=== PATIENT | female | born 1975 | race Caucasian/White ===

== ENCOUNTER 2019-09-05 10:09 | Inpatient (IN) | payer BC ==
[~2019-09-05] VITALS: Ht 165.1 cm; Wt 75.9 kg
[2019-09-05] VITALS (15 sets, daily range): BP systolic 118–156; BP diastolic 66–93
[2019-09-05] MEDS ORDERED: IV NORMAL SALINE 1000ML BAG 1,000 ML IV SCH ×3 (10:16→15:00)
[2019-09-05 10:29] LABS: BASO # 0.1 x10^3/uL (0.0-0.2); BASO % 1 % (0-3); EOS # 0.2 x10^3/uL (0.0-0.7); EOS % 1 % (0-3); HEMATOCRIT 37.2 % (36.0-47.0); HEMOGLOBIN 12.4 g/dL (12.0-15.5); LYMPH # 3.8 x10^3/uL (1.0-4.8); LYMPH % 31 % (24-48); MEAN CORPUSCULAR HEMOGLOBIN 28 pg (25-35); MEAN CORPUSCULAR HGB CONC 33 g/dL (31-37); MEAN CORPUSCULAR VOLUME 85 fL (79-100); MONO # 1.1 x10^3/uL (0.0-1.1); MONO % 9 % (0-9); NEUT # 7.3 x10^3/uL (1.8-7.7); NEUT % 58 % (31-73); PLATELET COUNT 346 x10^3/uL (140-400); RED CELL DISTRIBUTION WIDTH 15.6 % (11.5-14.5); WHITE BLOOD COUNT 12.5 x10^3/uL (4.0-11.0)
[2019-09-05] MEDS ORDERED: CHARCOAL/SORBITOL 50 GM/240 ML SUSPENSION. PO ONE (10:30)
[2019-09-05 10:36] LABS: PROTHROMBIN TIME PATIENT 11.6 SEC (11.7-14.0)
[2019-09-05 10:37] LABS: CALCIUM 9.4 mg/dL (8.5-10.1); CREATININE 0.7 mg/dL (0.6-1.0); GFR 92.2; POTASSIUM 4.1 mmol/L (3.5-5.1)
[2019-09-05 10:41] LABS: BILIRUBIN,URINE NEGATIVE (NEG); CLARITY,URINE CLEAR; COLOR,URINE YELLOW; NITRITE,URINE NEGATIVE (NEG); PROTEIN,URINE NEGATIVE (NEG-TRACE); UROBILINOGEN,URINE 0.2 mg/dL (0.2 mg/dL)
[2019-09-05 10:43] LABS: ALBUMIN 3.8 g/dL (3.4-5.0); DIRECT BILIRUBIN 0.1 mg/dL (0.0-0.2); TOTAL BILIRUBIN 0.3 mg/dL (0.2-1.0); TOTAL PROTEIN 7.4 g/dL (6.4-8.2)
[2019-09-05 10:43] LABS: BARBITURATES NEG (NEG); BENZODIAZEPINES NEG (NEG); CANNABINOIDS POS (NEG); COCAINE NEG (NEG); METHADONE NEG (NEG); OPIATES NEG (NEG); PHENCYCLIDINE NEG (NEG)
[2019-09-05 10:46] LABS: AMPHETAMINE/METHAMPHETAMINE POS (NEG)
[2019-09-05 10:47] LABS: ACETAMIN 226.8 mcg/ml (10-30); ETHANOL < 10 mg/dL (0-10); SALIC 4.3 mg/dL (2.8-20.0)
[2019-09-05 10:49] LABS: AMORPHOUS SEDIMENT,UR PRESENT /HPF; BACTERIA,URINE 0 /HPF (0-FEW); RBC,URINE 0 /HPF (0-2); SQUAMOUS EPITHELIAL CELL,UR FEW /LPF; WBC,URINE 0 /HPF (0-4)
--- NOTE | 2019-09-05 10:55 | PHYS DOC ---
Adult General Chief Complaint Chief Complaint: OVERDOSE HPI HPI Patient is a 43-year-old female who presents with report of overdose of Tylenol PM. Family had reportedly called EMS stating that patient had taken 80 tablets of Tylenol PM at 9:10 this morning. EMS reports that upon their arrival patient was very lethargic and responsive to painful stimuli. They reported GCS of 9. Patient reportedly has had no vomiting. No other history is available at this time as patient is unable to answer questions.[] Review of Systems Review of Systems Constitutional: Denies fever or chills [] Respiratory: No reported shortness of breath [] Cardiovascular: No additional information not addressed in HPI [] GI: No reported vomiting or diarrhea [] Neurologic: Positive mental status changes [] Unable to fully assess review of systems due to patient mental status. Current Medications Current Medications Current Medications Medications (Trade) Dose Ordered Sig/Mae Start Time Stop Time Status Last Admin Dose Admin Acetylcysteine 12.3 gm/Dextrose 261.5 ml @ 200 mls/hr 1X ONCE 09/05/19 11:00 09/05/19 12:18 UNV Charcoal/Sorbitol (Insta-Kayley Sorbitol) 50 gm 1X ONCE 09/05/19 10:30 09/05/19 11:12 DC Lorazepam (Ativan Inj) 2 mg 1X ONCE 09/05/19 10:30 09/05/19 11:12 DC Sodium Chloride 1,000 ml @ 125 mls/hr Q8H 09/05/19 11:39 09/06/19 11:38 UNV Allergies Allergies Allergies Coded Allergies Type Severity Reaction Last Updated Verified Unable to Assess 09/05/19 No Physical Exam Physical Exam Constitutional: Well developed, well nourished, no acute distress, non-toxic appearance. [] HENT: Normocephalic, atraumatic, bilateral external ears normal, oropharynx dry, no oral exudates, nose normal. [] Eyes: PERRLA, EOMI, conjunctiva normal, no discharge. [] Neck: Normal range of motion, no tenderness, supple, no stridor. [] Cardiovascular: Regular rate and rhythm[] Lungs & Thorax: Bilateral breath sounds clear to auscultation [] Abdomen: Bowel sounds normal, soft, no tenderness. [] Skin: Warm, dry, no erythema, no rash. [] Extremities: No tenderness, no cyanosis, no clubbing, ROM intact, no edema. [] Neurologic: Very lethargic but arousable to painful stimuli. Patient nonverbal. Patient unable to follow commands. [] Current Patient Data Vital Signs Vital Signs Date Time Temp Pulse Resp B/P (MAP) Pulse Ox O2 Delivery O2 Flow Rate FiO2 09/05/19 11:31 68 12 119/65 (83) 99 Room Air 09/05/19 10:09 94.4 94.4 Lab Values Laboratory Tests Test 09/05/19 10:14 09/05/19 10:18 09/05/19 10:20 09/05/19 10:21 White Blood Count 12.5 x10^3/uL (4.0-11.0) H Red Blood Count 4.40 x10^6/uL (3.50-5.40) Hemoglobin 12.4 g/dL (12.0-15.5) Hematocrit 37.2 % (36.0-47.0) Mean Corpuscular Volume 85 fL (79-100) Mean Corpuscular Hemoglobin 28 pg (25-35) Mean Corpuscular Hemoglobin Concent 33 g/dL (31-37) Red Cell Distribution Width 15.6 % (11.5-14.5) H Platelet Count 346 x10^3/uL (140-400) Neutrophils (%) (Auto) 58 % (31-73) Lymphocytes (%) (Auto) 31 % (24-48) Monocytes (%) (Auto) 9 % (0-9) Eosinophils (%) (Auto) 1 % (0-3) Basophils (%) (Auto) 1 % (0-3) Neutrophils # (Auto) 7.3 x10^3/uL (1.8-7.7) Lymphocytes # (Auto) 3.8 x10^3/uL (1.0-4.8) Monocytes # (Auto) 1.1 x10^3/uL (0.0-1.1) Eosinophils # (Auto) 0.2 x10^3/uL (0.0-0.7) Basophils # (Auto) 0.1 x10^3/uL (0.0-0.2) Sodium Level 139 mmol/L (136-145) Potassium Level 4.1 mmol/L (3.5-5.1) Chloride Level 104 mmol/L (98-107) Carbon Dioxide Level 24 mmol/L (21-32) Anion Gap 11 (6-14) Blood Urea Nitrogen 9 mg/dL (7-20) Creatinine 0.7 mg/dL (0.6-1.0) Estimated GFR (Cockcroft-Gault) 92.2 Glucose Level 100 mg/dL (70-99) H Lactic Acid Level 1.2 mmol/L (0.4-2.0) Calcium Level 9.4 mg/dL (8.5-10.1) Magnesium Level 2.0 mg/dL (1.8-2.4) Total Bilirubin 0.3 mg/dL (0.2-1.0) Direct Bilirubin 0.1 mg/dL (0.0-0.2) Aspartate Amino Transferase (AST) 23 U/L (15-37) Alanine Aminotransferase (ALT) 20 U/L (14-59) Alkaline Phosphatase 156 U/L (46-116) H Total Protein 7.4 g/dL (6.4-8.2) Albumin 3.8 g/dL (3.4-5.0) Salicylates Level 4.3 mg/dL (2.8-20.0) Salicylate Last Dose Date Unknown Salicylate Last Dose Time Unknown Acetaminophen Level 226.8 mcg/ml (10-30) H Acetaminophen Last Dose Date Unknown Acetaminophen Last Dose Time Unknown Ethyl Alcohol Level < 10 mg/dL (0-10) Urine Collection Type Unknown Urine Color Yellow Urine Clarity Clear Urine pH 7.0 Urine Specific [place] 1.010 Urine Protein Negative mg/dL (NEG-TRACE) Urine Glucose (UA) Negative mg/dL (NEG) Urine Ketones (Stick) Negative mg/dL (NEG) Urine Blood Negative (NEG) Urine Nitrite Negative (NEG) Urine Bilirubin Negative (NEG) Urine Urobilinogen Dipstick 0.2 mg/dL (0.2 mg/dL) Urine Leukocyte Esterase Negative (NEG) Urine RBC 0 /HPF (0-2) Urine WBC 0 /HPF (0-4) Urine Squamous Epithelial Cells Few /LPF Urine Amorphous Sediment Present /HPF Urine Bacteria 0 /HPF (0-FEW) Urine Opiates Screen Neg (NEG) Urine Methadone Screen Neg (NEG) Urine Barbiturates Neg (NEG) Urine Phencyclidine Screen Neg (NEG) Urine Amphetamine/Methamphetamine Pos (NEG) Urine Benzodiazepines Screen Neg (NEG) Urine Cocaine Screen Neg (NEG) Urine Cannabinoids Screen Pos (NEG) Urine Ethyl Alcohol Neg (NEG) Ammonia < 10 mcmol/L (11-34) L POC Urine HCG, Qualitative Hcg negative (Negative) Laboratory Tests 09/05/19 10:14 Laboratory Tests 09/05/19 10:14 EKG EKG [] Interpretation Time: EKG demonstrates normal sinus rhythm with rate of 86. Radiology/Procedures Radiology/Procedures [] Course & Med Decision Making Course & Med Decision Making Pertinent Labs and Imaging studies reviewed. (See chart for details) [] Dragon Disclaimer Dragon Disclaimer This electronic medical record was generated, in whole or in part, using a voice recognition dictation system. Departure Departure Impression: Primary Impression: Acetaminophen overdose Additional Impressions: Diphenhydramine overdose Suicide attempt by acetaminophen overdose Disposition: ADMITTED INPATIENT Admitting Physician: BJ (Dr. Sampson) Condition: GUARDED Problem Qualifiers Primary Impression: Acetaminophen overdose Encounter type: initial encounter Injury intent: intentional self-harm Qualified Codes: T39.1X2A - Poisoning by 4-aminophenol derivatives, intentional self-harm, initial encounter Additional Impressions: Diphenhydramine overdose Encounter type: initial encounter Injury intent: intentional self-harm Qualified Codes: T45.0X2A - Poisoning by antiallergic and antiemetic drugs, intentional self-harm, initial encounter Suicide attempt by acetaminophen overdose Encounter type: initial encounter Qualified Codes: T39.1X2A - Poisoning by 4-aminophenol derivatives, intentional self-harm, initial encounter STACY MARQUES Jr., DO Sep 05, 2019 10:55
[2019-09-05] MEDS ORDERED: DEXTROSE 5% IV ONE (11:00)
[2019-09-05] MEDS ORDERED: ACETYLCYSTEINE IV ONE (11:00)
--- NOTE | 2019-09-05 11:22 | PDOC1 ---
History and Physical Date of Admission Date of Admission DATE: 09/05/19 TIME: 11:21 Identification/Chief Complaint Chief Complaint seen in er with overdose of Tylenol PM. Family had reportedly called EMS stating that patient had taken 80 tablets of Tylenol PM at 9:10 this morning. EMS reports that upon their arrival patient was very lethargic and responsive to painful stimuli. They reported GCS of 9. Patient reportedly has had no vomiting., has been depressed recently, lost 2 grandmothers in last year, under stress in marriage Past Medical History Past Medical History depression Psych: Depression Family History Family History: Hypertension Social History Smoke: <1 pack per day ALCOHOL: occassional Drugs: None Current Medications Current Medications Current Medications Sodium Chloride 1,000 ml @ 1,000 mls/hr Q1H IV Last administered on 09/05/19at 10:16; Start 09/05/19 at 10:16; Stop 09/05/19 at 11:15; Status DC Charcoal/Sorbitol (Insta-Kayley Sorbitol) 50 gm 1X ONCE PO ; Start 09/05/19 at 10:30; Stop 09/05/19 at 11:12; Status DC Lorazepam (Ativan Inj) 2 mg 1X ONCE IVP ; Start 09/05/19 at 10:30; Stop 09/05/19 at 11:12; Status DC Acetylcysteine 12.3 gm/Dextrose 261.5 ml @ 200 mls/hr 1X ONCE IV ; Start 09/05/19 at 11:00; Stop 09/05/19 at 12:18; Status UNV Allergies Allergies: Coded Allergies: Unable to Assess (Unverified , 09/05/19) ROS Review of System Review of Systems Review of Systems Constitutional: Denies fever or chills [] Respiratory: No reported shortness of breath [] Cardiovascular: No additional information not addressed in HPI [] GI: No reported vomiting or diarrhea [] Neurologic: Positive mental status changes [] Unable to fully assess review of systems due to patient mental status. Physical Exam Physical Exam Physical Exam Physical Exam Constitutional: Well developed, well nourished, no acute distress, non-toxic appearance. [] HENT: Normocephalic, atraumatic, bilateral external ears normal, oropharynx dry, no oral exudates, nose normal. [] Eyes: PERRLA, EOMI, conjunctiva normal, no discharge. [] Neck: Normal range of motion, no tenderness, supple, no stridor. [] Cardiovascular: Regular rate and rhythm[] Lungs & Thorax: Bilateral breath sounds clear to auscultation [] Abdomen: Bowel sounds normal, soft, no tenderness. [] Skin: Warm, dry, no erythema, no rash. [] Extremities: No tenderness, no cyanosis, no clubbing, ROM intact, no edema. [] Neurologic: lethargic but arousable to painful stimuli. Patient nonverbal. Patient unable to follow commands General: No acute distress, mild distress HEENT: Atraumatic, Mucous membr. moist/pink Lungs: Clear to auscultation, Normal air movement Heart: RRR Breasts: Not examined Abdomen: Normal bowel sounds, Soft, No tenderness PELVIC: Examination not indicated Extremities: No cyanosis Neuro: Cranial nerves 3-12 NL Vitals Vitals Vital Signs Date Time Temp Pulse Resp B/P (MAP) Pulse Ox O2 Delivery O2 Flow Rate FiO2 09/05/19 10:09 94.4 82 18 159/87 (111) 100 Room Air 94.4 Labs Labs Laboratory Tests Test 09/05/19 10:14 09/05/19 10:18 09/05/19 10:20 09/05/19 10:21 White Blood Count 12.5 x10^3/uL (4.0-11.0) Red Blood Count 4.40 x10^6/uL (3.50-5.40) Hemoglobin 12.4 g/dL (12.0-15.5) Hematocrit 37.2 % (36.0-47.0) Mean Corpuscular Volume 85 fL (79-100) Mean Corpuscular Hemoglobin 28 pg (25-35) Mean Corpuscular Hemoglobin Concent 33 g/dL (31-37) Red Cell Distribution Width 15.6 % (11.5-14.5) Platelet Count 346 x10^3/uL (140-400) Neutrophils (%) (Auto) 58 % (31-73) Lymphocytes (%) (Auto) 31 % (24-48) Monocytes (%) (Auto) 9 % (0-9) Eosinophils (%) (Auto) 1 % (0-3) Basophils (%) (Auto) 1 % (0-3) Neutrophils # (Auto) 7.3 x10^3/uL (1.8-7.7) Lymphocytes # (Auto) 3.8 x10^3/uL (1.0-4.8) Monocytes # (Auto) 1.1 x10^3/uL (0.0-1.1) Eosinophils # (Auto) 0.2 x10^3/uL (0.0-0.7) Basophils # (Auto) 0.1 x10^3/uL (0.0-0.2) Sodium Level 139 mmol/L (136-145) Potassium Level 4.1 mmol/L (3.5-5.1) Chloride Level 104 mmol/L (98-107) Carbon Dioxide Level 24 mmol/L (21-32) Anion Gap 11 (6-14) Blood Urea Nitrogen 9 mg/dL (7-20) Creatinine 0.7 mg/dL (0.6-1.0) Estimated GFR (Cockcroft-Gault) 92.2 Glucose Level 100 mg/dL (70-99) Lactic Acid Level 1.2 mmol/L (0.4-2.0) Calcium Level 9.4 mg/dL (8.5-10.1) Magnesium Level 2.0 mg/dL (1.8-2.4) Total Bilirubin 0.3 mg/dL (0.2-1.0) Direct Bilirubin 0.1 mg/dL (0.0-0.2) Aspartate Amino Transf (AST/SGOT) 23 U/L (15-37) Alanine Aminotransferase (ALT/SGPT) 20 U/L (14-59) Alkaline Phosphatase 156 U/L (46-116) Total Protein 7.4 g/dL (6.4-8.2) Albumin 3.8 g/dL (3.4-5.0) Salicylates Level 4.3 mg/dL (2.8-20.0) Salicylate Last Dose Date Unknown Salicylate Last Dose Time Unknown Acetaminophen Level 226.8 mcg/ml (10-30) Acetaminophen Last Dose Date Unknown Acetaminophen Last Dose Time Unknown Ethyl Alcohol Level < 10 mg/dL (0-10) Urine Collection Type Unknown Urine Color Yellow Urine Clarity Clear Urine pH 7.0 Urine Specific [employer] 1.010 Urine Protein Negative mg/dL (NEG-TRACE) Urine Glucose (UA) Negative mg/dL (NEG) Urine Ketones (Stick) Negative mg/dL (NEG) Urine Blood Negative (NEG) Urine Nitrite Negative (NEG) Urine Bilirubin Negative (NEG) Urine Urobilinogen Dipstick 0.2 mg/dL (0.2 mg/dL) Urine Leukocyte Esterase Negative (NEG) Urine RBC 0 /HPF (0-2) Urine WBC 0 /HPF (0-4) Urine Squamous Epithelial Cells Few /LPF Urine Amorphous Sediment Present /HPF Urine Bacteria 0 /HPF (0-FEW) Urine Opiates Screen Neg (NEG) Urine Methadone Screen Neg (NEG) Urine Barbiturates Neg (NEG) Urine Phencyclidine Screen Neg (NEG) Urine Amphetamine/Methamphetamine Pos (NEG) Urine Benzodiazepines Screen Neg (NEG) Urine Cocaine Screen Neg (NEG) Urine Cannabinoids Screen Pos (NEG) Urine Ethyl Alcohol Neg (NEG) Ammonia < 10 mcmol/L (11-34) Bedside Urine HCG, Qualitative Hcg negative (Negative) Laboratory Tests Test 09/05/19 10:14 09/05/19 10:18 09/05/19 10:20 09/05/19 10:21 White Blood Count 12.5 x10^3/uL (4.0-11.0) Red Blood Count 4.40 x10^6/uL (3.50-5.40) Hemoglobin 12.4 g/dL (12.0-15.5) Hematocrit 37.2 % (36.0-47.0) Mean Corpuscular Volume 85 fL (79-100) Mean Corpuscular Hemoglobin 28 pg (25-35) Mean Corpuscular Hemoglobin Concent 33 g/dL (31-37) Red Cell Distribution Width 15.6 % (11.5-14.5) Platelet Count 346 x10^3/uL (140-400) Neutrophils (%) (Auto) 58 % (31-73) Lymphocytes (%) (Auto) 31 % (24-48) Monocytes (%) (Auto) 9 % (0-9) Eosinophils (%) (Auto) 1 % (0-3) Basophils (%) (Auto) 1 % (0-3) Neutrophils # (Auto) 7.3 x10^3/uL (1.8-7.7) Lymphocytes # (Auto) 3.8 x10^3/uL (1.0-4.8) Monocytes # (Auto) 1.1 x10^3/uL (0.0-1.1) Eosinophils # (Auto) 0.2 x10^3/uL (0.0-0.7) Basophils # (Auto) 0.1 x10^3/uL (0.0-0.2) Sodium Level 139 mmol/L (136-145) Potassium Level 4.1 mmol/L (3.5-5.1) Chloride Level 104 mmol/L (98-107) Carbon Dioxide Level 24 mmol/L (21-32) Anion Gap 11 (6-14) Blood Urea Nitrogen 9 mg/dL (7-20) Creatinine 0.7 mg/dL (0.6-1.0) Estimated GFR (Cockcroft-Gault) 92.2 Glucose Level 100 mg/dL (70-99) Lactic Acid Level 1.2 mmol/L (0.4-2.0) Calcium Level 9.4 mg/dL (8.5-10.1) Magnesium Level 2.0 mg/dL (1.8-2.4) Total Bilirubin 0.3 mg/dL (0.2-1.0) Direct Bilirubin 0.1 mg/dL (0.0-0.2) Aspartate Amino Transf (AST/SGOT) 23 U/L (15-37) Alanine Aminotransferase (ALT/SGPT) 20 U/L (14-59) Alkaline Phosphatase 156 U/L (46-116) Total Protein 7.4 g/dL (6.4-8.2) Albumin 3.8 g/dL (3.4-5.0) Salicylates Level 4.3 mg/dL (2.8-20.0) Salicylate Last Dose Date Unknown Salicylate Last Dose Time Unknown Acetaminophen Level 226.8 mcg/ml (10-30) Acetaminophen Last Dose Date Unknown Acetaminophen Last Dose Time Unknown Ethyl Alcohol Level < 10 mg/dL (0-10) Urine Collection Type Unknown Urine Color Yellow Urine Clarity Clear Urine pH 7.0 [address]rine Specific [employer] 1.010 Urine Protein Negative mg/dL (NEG-TRACE) Urine Glucose (UA) Negative mg/dL (NEG) Urine Ketones (Stick) Negative mg/dL (NEG) Urine Blood Negative (NEG) Urine Nitrite Negative (NEG) Urine Bilirubin Negative (NEG) Urine Urobilinogen Dipstick 0.2 mg/dL (0.2 mg/dL) Urine Leukocyte Esterase Negative (NEG) Urine RBC 0 /HPF (0-2) Urine WBC 0 /HPF (0-4) Urine Squamous Epithelial Cells Few /LPF Urine Amorphous Sediment Present /HPF Urine Bacteria 0 /HPF (0-FEW) Urine Opiates Screen Neg (NEG) Urine Methadone Screen Neg (NEG) Urine Barbiturates Neg (NEG) Urine Phencyclidine Screen Neg (NEG) Urine Amphetamine/Methamphetamine Pos (NEG) Urine Benzodiazepines Screen Neg (NEG) Urine Cocaine Screen Neg (NEG) Urine Cannabinoids Screen Pos (NEG) Urine Ethyl Alcohol Neg (NEG) Ammonia < 10 mcmol/L (11-34) Bedside Urine HCG, Qualitative Hcg negative (Negative) VTE Prophylaxis Ordered VTE Prophylaxis Devices: Yes VTE Pharmacological Prophylaxi: Yes Assessment/Plan Assessment/Plan Impression: Acetaminophen overdose major depression Diphenhydramine overdose Suicide attempt by acetaminophen overdose possible Adderall ingestion by hx of boyfriend ADMITTED icu bed monitor for hepatic toxicity monitor for cardiac toxicity suicide precautions GI CONSULT Mucomyst dosing dvt prophylaxis iv fluid support follow tylenol level 4, 9 and 12 hrs 40 min cc time CHARLENE PEREZ MD Sep 05, 2019 11:21
--- NOTE | 2019-09-05 13:48 | NUR ---
ADMISSION: Pt very sleepy but wakes up when aroused. Speech garbled so most of the admission questions are unable to be completed. Will reassess at a later time when pt status improves. NS running at 125/hr. Tylenol lab redrawn-- waiting on results for Mucomyst gtt.
--- NOTE | 2019-09-05 13:51 | EKG ---
[facility] [address] [place] [address] Test Date: 2019-09-05 Test Time: 12:20:34 Pat Name: SHILA VEGA Department: Room: 108 1 Gender: F Kaiako Kura [place]: : 1975 Requested By: STACY MARQUES Order Number: [id number] Reading MD: Cory Alfaro MD Measurements Intervals [place] Rate: 71 P: 45 NE: 138 QRS: 53 QRSD: 86 T: 34 QT: 448 QTc: 492 Interpretive Statements SINUS RHYTHM Electronically Signed On 09-20-2019 9:12:13 RADIOLOGY SUPERVISOR by Cory Alfaro MD
[2019-09-05 13:56] LABS: ACETAMIN 135.2 mcg/ml (10-30)
--- NOTE | 2019-09-05 14:10 | NUR ---
Dr. Sampson notified of tylenol level of 135.2, orders received to redraw tylenol level at 1700
[2019-09-05] MEDS ORDERED: LORazepam 1 MG TABLET PO PRN (14:30)
[2019-09-05] MEDS ORDERED: BISACODYL 10 MG SUPP.RECT. PR PRN (14:30)
[2019-09-05] MEDS ORDERED: CALCIUM CARBONATE 500 MG TAB.CHEW PO PRN (14:30)
[2019-09-05] MEDS ORDERED: 0.9 % SODIUM CHLORIDE 10 ML DISP.SYRIN. IV PRN (14:30)
--- NOTE | 2019-09-05 14:58 | RAD ---
EXAM: Chest, single view. HISTORY: Overdose. COMPARISON: None. FINDINGS: A frontal view of the chest is obtained. There is no infiltrate, pleural effusion or pneumothorax. The heart is normal in size. IMPRESSION: No acute pulmonary finding. Electronically signed by: Yarelis Ashton MD (09/05/2019 2:55 PM) [facility]
--- NOTE | 2019-09-05 15:55 | NUR ---
Dr. Sampson ordered serial EKG to monitor for prolonged QT interval Q4HRS x3. Orders placed.
[2019-09-05 17:00] LABS: ACETAMIN 62.2 mcg/ml (10-30)
[2019-09-05] MEDS: ONDANSETRON PF 4 MG/2 ML VIAL. IV PRN (17:45)
--- NOTE | 2019-09-05 17:52 | NUR ---
Boyfriend Miko, daughter at bedside. Miko requested to leave patients phone with her but educated on SI protocol and took phone home. Patient awake and communicating appropriately.
[2019-09-05] MEDS ORDERED: VENL75CA PO (18:08)
--- NOTE | 2019-09-05 19:54 | EKG ---
[facility] [address] [place] [address] Test Date: 2019-09-05 Test Time: 16:21:41 Pat Name: SHILA VEGA Department: Room: 108 1 Gender: F Guest Relations Representative: SANJANAMeron : 1975 Requested By: CHARLENE PEREZ Order Number: [id number] Reading MD: Cory Alfaro MD Measurements Intervals [place] Rate: 75 P: 51 [place]: 130 QRS: 68 QRSD: 88 T: 29 QT: 416 QTc: 467 Interpretive Statements SINUS RHYTHM Electronically Signed On 09-20-2019 9:14:23 MICROWAVE ENGINEER by Cory Alfaro MD
--- NOTE | 2019-09-05 19:59 | EKG ---
[facility] [address] [place] [address] Test Date: 2019-09-05 Test Time: 20:05:38 Pat Name: SHILA VEGA Department: Room: 108 1 Gender: F Auto [employer] Station Attendant: BHARTI : 1975 Requested By: CHARLENE PEREZ Order Number: [id number] Reading MD: Cory Alfaro MD Measurements Intervals [place] Rate: 77 P: 56 ID: [id number] QRS: 73 QRSD: 80 T: 56 QT: 408 QTc: 464 Interpretive Statements SINUS RHYTHM Electronically Signed On 09-20-2019 9:15:39 KENNEL AIDE by Cory Alfaro MD
[2019-09-05] MEDS: DOCUSATE SODIUM 100 MG CAPSULE. PO SCH (21:00)
[2019-09-05] MEDS: SENNOSIDES/DOCUSATE 8.6/50MG TABLET. PO SCH (21:00)
[2019-09-05] MEDS: ENOXAPARIN 40 MG/0.4 ML SYRINGE. SQ SCH (21:30)
[2019-09-05] MEDS: FAMOTIDINE 20 MG/2 ML VIAL IVP SCH (21:30)
--- NOTE | 2019-09-05 23:20 | NUR ---
Received call from Dr. Wall. Orders received from MD to start Mucomyst administration per protocol. Orders entered into system by pharmacist. Pt to try and take orally, give IV if not tolerated. Pt has been sleeping but easily arousable for most of the shift. Patient oriented when awake with occasional forgetfulness. Pt currently resting with eyes closed. Pt continues to be 1:1 status, with RN between pt and the doorway. Will continue to monitor.
[2019-09-06] VITALS (18 sets, daily range): BP systolic 126–160; BP diastolic 62–89
[2019-09-06] MEDS ORDERED: ACETYLCYSTEINE 20% PO ONE
--- NOTE | 2019-09-06 00:21 | NUR ---
Notified by Gagan, pharmacist, that hospital was out of PO Mucomyst at approx 2330. Hospital receiving medication from [facility] in approx 30-45 minutes. Page placed out to Dr. Wall to ask if medication should be started IV or wait for PO. No call back received. Awaiting for PO medication to arrive.
--- NOTE | 2019-09-06 00:21 | EKG ---
[facility] [address] [place] [address] Test Date: 2019-09-06 Test Time: 00:27:11 Pat Name: SHILA VEGA Department: Room: 108 1 Gender: F Bail Bonding Agent: BHARTI : 1975 Requested By: CHARLENE PEREZ Order Number: [id number] Reading MD: Cory Alfaro MD Measurements Intervals [place] Rate: 72 P: 52 [place]: 132 QRS: 76 QRSD: 80 T: 59 QT: 416 QTc: 457 Interpretive Statements SINUS RHYTHM Electronically Signed On 09-20-2019 9:16:51 CANVAS GOODS FABRICATOR by Cory Alfaro MD
--- NOTE | 2019-09-06 02:15 | NUR ---
Received call from Raven with Poison Control at 0140. Updated on pt status. Pt continues to be drowsy but easily arousable. Oriented when awake. VSS. Raven reported that last Tylenol level in the 60s was non-toxic for being drawn around 7-8 hours after reported ingestion. Will pass on and continue to monitor patient. Pt currently resting with eyes closed.
[2019-09-06 04:54] LABS: BASO # 0.1 x10^3/uL (0.0-0.2); BASO % 1 % (0-3); EOS # 0.1 x10^3/uL (0.0-0.7); EOS % 1 % (0-3); HEMATOCRIT 35.3 % (36.0-47.0); HEMOGLOBIN 11.7 g/dL (12.0-15.5); LYMPH # 2.3 x10^3/uL (1.0-4.8); LYMPH % 17 % (24-48); MEAN CORPUSCULAR HEMOGLOBIN 28 pg (25-35); MEAN CORPUSCULAR HGB CONC 33 g/dL (31-37); MEAN CORPUSCULAR VOLUME 84 fL (79-100); MONO # 0.5 x10^3/uL (0.0-1.1); MONO % 4 % (0-9); NEUT # 10.5 x10^3/uL (1.8-7.7); NEUT % 78 % (31-73); PLATELET COUNT 302 x10^3/uL (140-400); RED BLOOD COUNT 4.18 x10^6/uL (3.50-5.40); WHITE BLOOD COUNT 13.5 x10^3/uL (4.0-11.0)
[2019-09-06] MEDS: ACETYLCYSTEINE 20% PO SCH ×5 (04:56→21:25)
[2019-09-06 05:18] LABS: ALBUMIN 3.1 g/dL (3.4-5.0); CALCIUM 8.3 mg/dL (8.5-10.1); CREATININE 0.8 mg/dL (0.6-1.0); POTASSIUM 3.2 mmol/L (3.5-5.1); TOTAL BILIRUBIN 0.5 mg/dL (0.2-1.0); TOTAL PROTEIN 6.3 g/dL (6.4-8.2)
[2019-09-06 05:28] LABS: PROTHROMBIN TIME PATIENT 14.1 SEC (11.7-14.0)
--- NOTE | 2019-09-06 06:16 | NUR ---
Received call from Raven with Poison Control and updated on pt condition and labs. Raven suggested a CK be performed by lab due to increased liver enzymes. Call placed to Dr. Sampson. Received order to perform CK. Also notified MD of pt labs and status, start of Mucomyst per Dr. Wall. Received order to start pt on regular diet. All orders entered into system. Pt currently resting with eyes closed. Pt continues to be on 1:1 status. Will continue to monitor.
[2019-09-06] MEDS ORDERED: POTASSIUM CHLORIDE 20 MEQ TABLET.ER. PO ONE (07:30)
[2019-09-06] MEDS: IV NORMAL SALINE 1000ML BAG 1,000 ML IV SCH ×2 (07:40→17:44)
[2019-09-06] MEDS: ONDANSETRON PF 4 MG/2 ML VIAL. IV PRN (07:44)
--- NOTE | 2019-09-06 08:10 | EKG ---
[address] [place] [address] Test Date: 2019-09-05 Test Time: 10:13:52 Pat Name: SHILA VEGA Department: Room: 108 1 Gender: F Steam Oven Operator: : 1975 Requested By: CHARLENE PEREZ Order Number: [id number] Reading MD: Cory Alfaro MD Measurements Intervals [place] Rate: 86 P: 139 [place]: 136 QRS: 129 QRSD: 86 T: 137 QT: 408 QTc: 491 Interpretive Statements SINUS RHYTHM LIMB LEAD REVERSAL Electronically Signed On 09-20-2019 9:10:58 FUR SEWER by Cory Alfaro MD
--- NOTE | 2019-09-06 08:23 | PDOC ---
PROGRESS NOTES Chief Complaint Chief Complaint A/P: Acetaminophen overdose major depression Diphenhydramine overdose Suicide attempt by acetaminophen overdose Adderall ingestion Hypokalemia Transaminitis ADMITTED icu bed --> downgrade to tele monitor for hepatic toxicity monitor for cardiac toxicity suicide precautions GI CONSULT Mucomyst dosing dvt prophylaxis iv fluid support History of Present Illness History of Present Illness Ms Tinoco is a 43yo F w/ PMHx MDD who is admitted with an overdose of Tylenol PM. Family had reportedly called EMS stating that patient had taken 80 tablets of Tylenol PM at 9:10 the morning of 09/05/19. EMS reports that upon their arrival patient was very lethargic and responsive to painful stimuli. They reported GCS of 9. Patient reportedly has had no vomiting, has been depressed recently, lost 2 grandmothers in last year, under stress in relationship, shares custody with a 17 and 13 year old. Has a long history of MDD has previously felt suicidal on lexapro, felt lifeless on cymbalta, had no libido on zoloft and has been on effexor for a while now to aid in treatment of her hot flashes and MDD. 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 She has never had a suicide attempt previously but notes she definitely tried to overdose on tylenol knowing it is an effective way to commit suicide. She has never had inpatient psych. She is not confused today, very tearful, still very depressed and knows she should not want to , but feels so depressed she wants to. K was 3.2, LFTs only slightly elevated. followed tylenol level 4, 9 and 12 hrs, 226.8->135->62.2->4. Unfortunately, she was not administered acetylcysteine until midnight due to late presentation after 11pm last night. Vitals Vitals Vital Signs Date Time Temp Pulse Resp B/P (MAP) Pulse Ox O2 Delivery O2 Flow Rate FiO2 09/06/19 08:00 89 16 159/75 (103) Room Air 09/06/19 07:15 98.2 98.2 09/06/19 06:00 97 Physical Exam General: Alert, Oriented X3, Cooperative, No acute distress, mild distress Heart: Regular rate, Normal S1, Normal S2 Lungs: Clear, Wheezing Abdomen: Normal bowel sounds, Soft, No tenderness Extremities: No cyanosis Labs LABS Laboratory Tests Test 09/05/19 10:14 09/05/19 10:18 09/05/19 10:20 09/05/19 10:21 White Blood Count 12.5 x10^3/uL (4.0-11.0) Red Blood Count 4.40 x10^6/uL (3.50-5.40) Hemoglobin 12.4 g/dL (12.0-15.5) Hematocrit 37.2 % (36.0-47.0) Mean Corpuscular Volume 85 fL (79-100) Mean Corpuscular Hemoglobin 28 pg (25-35) Mean Corpuscular Hemoglobin Concent 33 g/dL (31-37) Red Cell Distribution Width 15.6 % (11.5-14.5) Platelet Count 346 x10^3/uL (140-400) Neutrophils (%) (Auto) 58 % (31-73) Lymphocytes (%) (Auto) 31 % (24-48) Monocytes (%) (Auto) 9 % (0-9) Eosinophils (%) (Auto) 1 % (0-3) Basophils (%) (Auto) 1 % (0-3) Neutrophils # (Auto) 7.3 x10^3/uL (1.8-7.7) Lymphocytes # (Auto) 3.8 x10^3/uL (1.0-4.8) Monocytes # (Auto) 1.1 x10^3/uL (0.0-1.1) Eosinophils # (Auto) 0.2 x10^3/uL (0.0-0.7) Basophils # (Auto) 0.1 x10^3/uL (0.0-0.2) Prothrombin Time 11.6 SEC (11.7-14.0) Prothromb Time International Ratio 0.9 (0.8-1.1) Activated Partial Thromboplast Time 23 SEC (24-38) Sodium Level 139 mmol/L (136-145) Potassium Level 4.1 mmol/L (3.5-5.1) Chloride Level 104 mmol/L (98-107) Carbon Dioxide Level 24 mmol/L (21-32) Anion Gap 11 (6-14) Blood Urea Nitrogen 9 mg/dL (7-20) Creatinine 0.7 mg/dL (0.6-1.0) Estimated GFR (Cockcroft-Gault) 92.2 Glucose Level 100 mg/dL (70-99) Lactic Acid Level 1.2 mmol/L (0.4-2.0) Calcium Level 9.4 mg/dL (8.5-10.1) Magnesium Level 2.0 mg/dL (1.8-2.4) Total Bilirubin 0.3 mg/dL (0.2-1.0) Direct Bilirubin 0.1 mg/dL (0.0-0.2) Aspartate Amino Transf (AST/SGOT) 23 U/L (15-37) Alanine Aminotransferase (ALT/SGPT) 20 U/L (14-59) Alkaline Phosphatase 156 U/L (46-116) Total Protein 7.4 g/dL (6.4-8.2) Albumin 3.8 g/dL (3.4-5.0) Thyroid Stimulating Hormone (TSH) 3.909 uIU/mL (0.358-3.74) Salicylates Level 4.3 mg/dL (2.8-20.0) Salicylate Last Dose Date Unknown Salicylate Last Dose Time Unknown Acetaminophen Level 226.8 mcg/ml (10-30) Acetaminophen Last Dose Date Unknown Acetaminophen Last Dose Time Unknown Ethyl Alcohol Level < 10 mg/dL (0-10) Urine Collection Type Unknown Urine Color Yellow Urine Clarity Clear Urine pH 7.0 Urine Specific Latham 1.010 Urine Protein Negative mg/dL (NEG-TRACE) Urine Glucose (UA) Negative mg/dL (NEG) Urine Ketones (Stick) Negative mg/dL (NEG) Urine Blood Negative (NEG) Urine Nitrite Negative (NEG) Urine Bilirubin Negative (NEG) Urine Urobilinogen Dipstick 0.2 mg/dL (0.2 mg/dL) Urine Leukocyte Esterase Negative (NEG) Urine RBC 0 /HPF (0-2) Urine WBC 0 /HPF (0-4) Urine Squamous Epithelial Cells Few /LPF Urine Amorphous Sediment Present /HPF Urine Bacteria 0 /HPF (0-FEW) Urine Opiates Screen Neg (NEG) Urine Methadone Screen Neg (NEG) Urine Barbiturates Neg (NEG) Urine Phencyclidine Screen Neg (NEG) Urine Amphetamine/Methamphetamine Pos (NEG) Urine Benzodiazepines Screen Neg (NEG) Urine Cocaine Screen Neg (NEG) Urine Cannabinoids Screen Pos (NEG) Urine Ethyl Alcohol Neg (NEG) Ammonia < 10 mcmol/L (11-34) Bedside Urine HCG, Qualitative Hcg negative (Negative) Test 09/05/19 13:20 09/05/19 16:43 09/05/19 21:53 09/06/19 04:00 Troponin I Quantitative < 0.017 ng/mL (0.000-0.055) Acetaminophen Level 135.2 mcg/ml (10-30) 62.2 mcg/ml (10-30) 4.0 mcg/ml (10-30) Acetaminophen Last Dose Date Unknown Unknown 09/05/19 Acetaminophen Last Dose Time Unknown Unknown 0900 Glucose (Fingerstick) 114 mg/dL (70-99) White Blood Count 13.5 x10^3/uL (4.0-11.0) Red Blood Count 4.18 x10^6/uL (3.50-5.40) Hemoglobin 11.7 g/dL (12.0-15.5) Hematocrit 35.3 % (36.0-47.0) Mean Corpuscular Volume 84 fL (79-100) Mean Corpuscular Hemoglobin 28 pg (25-35) Mean Corpuscular Hemoglobin Concent 33 g/dL (31-37) Red Cell Distribution Width 16.0 % (11.5-14.5) Platelet Count 302 x10^3/uL (140-400) Neutrophils (%) (Auto) 78 % (31-73) Lymphocytes (%) (Auto) 17 % (24-48) Monocytes (%) (Auto) 4 % (0-9) Eosinophils (%) (Auto) 1 % (0-3) Basophils (%) (Auto) 1 % (0-3) Neutrophils # (Auto) 10.5 x10^3/uL (1.8-7.7) Lymphocytes # (Auto) 2.3 x10^3/uL (1.0-4.8) Monocytes # (Auto) 0.5 x10^3/uL (0.0-1.1) Eosinophils # (Auto) 0.1 x10^3/uL (0.0-0.7) Basophils # (Auto) 0.1 x10^3/uL (0.0-0.2) Prothrombin Time 14.1 SEC (11.7-14.0) Prothromb Time International Ratio 1.1 (0.8-1.1) Activated Partial Thromboplast Time 32 SEC (24-38) Sodium Level 143 mmol/L (136-145) Potassium Level 3.2 mmol/L (3.5-5.1) Chloride Level 107 mmol/L (98-107) Carbon Dioxide Level 26 mmol/L (21-32) Anion Gap 10 (6-14) Blood Urea Nitrogen 10 mg/dL (7-20) Creatinine 0.8 mg/dL (0.6-1.0) Estimated GFR (Cockcroft-Gault) 79.0 BUN/Creatinine Ratio 13 (6-20) Glucose Level 122 mg/dL (70-99) Calcium Level 8.3 mg/dL (8.5-10.1) Total Bilirubin 0.5 mg/dL (0.2-1.0) Aspartate Amino Transf (AST/SGOT) 58 U/L (15-37) Alanine Aminotransferase (ALT/SGPT) 65 U/L (14-59) Alkaline Phosphatase 133 U/L (46-116) Creatine Kinase 155 U/L (26-192) Total Protein 6.3 g/dL (6.4-8.2) Albumin 3.1 g/dL (3.4-5.0) Albumin/Globulin Ratio 1.0 (1.0-1.7) Assessment and Plan Assessmemt and Plan Problems Medical Problems: (1) Acetaminophen overdose Status: Acute (2) Diphenhydramine overdose Status: Acute (3) Suicide attempt by acetaminophen overdose Status: Acute Comment Review of Relevant I have reviewed the following items claire (where applicable) has been applied. Labs Laboratory Tests Test 09/05/19 10:14 09/05/19 10:18 09/05/19 10:20 09/05/19 10:21 White Blood Count 12.5 x10^3/uL (4.0-11.0) Red Blood Count 4.40 x10^6/uL (3.50-5.40) Hemoglobin 12.4 g/dL (12.0-15.5) Hematocrit 37.2 % (36.0-47.0) Mean Corpuscular Volume 85 fL (79-100) Mean Corpuscular Hemoglobin 28 pg (25-35) Mean Corpuscular Hemoglobin Concent 33 g/dL (31-37) Red Cell Distribution Width 15.6 % (11.5-14.5) Platelet Count 346 x10^3/uL (140-400) Neutrophils (%) (Auto) 58 % (31-73) Lymphocytes (%) (Auto) 31 % (24-48) Monocytes (%) (Auto) 9 % (0-9) Eosinophils (%) (Auto) 1 % (0-3) Basophils (%) (Auto) 1 % (0-3) Neutrophils # (Auto) 7.3 x10^3/uL (1.8-7.7) Lymphocytes # (Auto) 3.8 x10^3/uL (1.0-4.8) Monocytes # (Auto) 1.1 x10^3/uL (0.0-1.1) Eosinophils # (Auto) 0.2 x10^3/uL (0.0-0.7) Basophils # (Auto) 0.1 x10^3/uL (0.0-0.2) Prothrombin Time 11.6 SEC (11.7-14.0) Prothromb Time International Ratio 0.9 (0.8-1.1) Activated Partial Thromboplast Time 23 SEC (24-38) Sodium Level 139 mmol/L (136-145) Potassium Level 4.1 mmol/L (3.5-5.1) Chloride Level 104 mmol/L (98-107) Carbon Dioxide Level 24 mmol/L (21-32) Anion Gap 11 (6-14) Blood Urea Nitrogen 9 mg/dL (7-20) Creatinine 0.7 mg/dL (0.6-1.0) Estimated GFR (Cockcroft-Gault) 92.2 Glucose Level 100 mg/dL (70-99) Lactic Acid Level 1.2 mmol/L (0.4-2.0) Calcium Level 9.4 mg/dL (8.5-10.1) Magnesium Level 2.0 mg/dL (1.8-2.4) Total Bilirubin 0.3 mg/dL (0.2-1.0) Direct Bilirubin 0.1 mg/dL (0.0-0.2) Aspartate Amino Transf (AST/SGOT) 23 U/L (15-37) Alanine Aminotransferase (ALT/SGPT) 20 U/L (14-59) Alkaline Phosphatase 156 U/L (46-116) Total Protein 7.4 g/dL (6.4-8.2) Albumin 3.8 g/dL (3.4-5.0) Thyroid Stimulating Hormone (TSH) 3.909 uIU/mL (0.358-3.74) Salicylates Level 4.3 mg/dL (2.8-20.0) Salicylate Last Dose Date Unknown Salicylate Last Dose Time Unknown Acetaminophen Level 226.8 mcg/ml (10-30) Acetaminophen Last Dose Date Unknown Acetaminophen Last Dose Time Unknown Ethyl Alcohol Level < 10 mg/dL (0-10) Urine Collection Type Unknown Urine Color Yellow Urine Clarity Clear Urine pH 7.0 Urine Specific Latham 1.010 Urine Protein Negative mg/dL (NEG-TRACE) Urine Glucose (UA) Negative mg/dL (NEG) Urine Ketones (Stick) Negative mg/dL (NEG) Urine Blood Negative (NEG) Urine Nitrite Negative (NEG) Urine Bilirubin Negative (NEG) Urine Urobilinogen Dipstick 0.2 mg/dL (0.2 mg/dL) Urine Leukocyte Esterase Negative (NEG) Urine RBC 0 /HPF (0-2) Urine WBC 0 /HPF (0-4) Urine Squamous Epithelial Cells Few /LPF Urine Amorphous Sediment Present /HPF Urine Bacteria 0 /HPF (0-FEW) Urine Opiates Screen Neg (NEG) Urine Methadone Screen Neg (NEG) Urine Barbiturates Neg (NEG) Urine Phencyclidine Screen Neg (NEG) Urine Amphetamine/Methamphetamine Pos (NEG) Urine Benzodiazepines Screen Neg (NEG) Urine Cocaine Screen Neg (NEG) Urine Cannabinoids Screen Pos (NEG) Urine Ethyl Alcohol Neg (NEG) Ammonia < 10 mcmol/L (11-34) Bedside Urine HCG, Qualitative Hcg negative (Negative) Test 09/05/19 13:20 09/05/19 16:43 09/05/19 21:53 09/06/19 04:00 Troponin I Quantitative < 0.017 ng/mL (0.000-0.055) Acetaminophen Level 135.2 mcg/ml (10-30) 62.2 mcg/ml (10-30) 4.0 mcg/ml (10-30) Acetaminophen Last Dose Date Unknown Unknown 09/05/19 Acetaminophen Last Dose Time Unknown Unknown 0900 Glucose (Fingerstick) 114 mg/dL (70-99) White Blood Count 13.5 x10^3/uL (4.0-11.0) Red Blood Count 4.18 x10^6/uL (3.50-5.40) Hemoglobin 11.7 g/dL (12.0-15.5) Hematocrit 35.3 % (36.0-47.0) Mean Corpuscular Volume 84 fL (79-100) Mean Corpuscular Hemoglobin 28 pg (25-35) Mean Corpuscular Hemoglobin Concent 33 g/dL (31-37) Red Cell Distribution Width 16.0 % (11.5-14.5) Platelet Count 302 x10^3/uL (140-400) Neutrophils (%) (Auto) 78 % (31-73) Lymphocytes (%) (Auto) 17 % (24-48) Monocytes (%) (Auto) 4 % (0-9) Eosinophils (%) (Auto) 1 % (0-3) Basophils (%) (Auto) 1 % (0-3) Neutrophils # (Auto) 10.5 x10^3/uL (1.8-7.7) Lymphocytes # (Auto) 2.3 x10^3/uL (1.0-4.8) Monocytes # (Auto) 0.5 x10^3/uL (0.0-1.1) Eosinophils # (Auto) 0.1 x10^3/uL (0.0-0.7) Basophils # (Auto) 0.1 x10^3/uL (0.0-0.2) Prothrombin Time 14.1 SEC (11.7-14.0) Prothromb Time International Ratio 1.1 (0.8-1.1) Activated Partial Thromboplast Time 32 SEC (24-38) Sodium Level 143 mmol/L (136-145) Potassium Level 3.2 mmol/L (3.5-5.1) Chloride Level 107 mmol/L (98-107) Carbon Dioxide Level 26 mmol/L (21-32) Anion Gap 10 (6-14) Blood Urea Nitrogen 10 mg/dL (7-20) Creatinine 0.8 mg/dL (0.6-1.0) Estimated GFR (Cockcroft-Gault) 79.0 BUN/Creatinine Ratio 13 (6-20) Glucose Level 122 mg/dL (70-99) Calcium Level 8.3 mg/dL (8.5-10.1) Total Bilirubin 0.5 mg/dL (0.2-1.0) Aspartate Amino Transf (AST/SGOT) 58 U/L (15-37) Alanine Aminotransferase (ALT/SGPT) 65 U/L (14-59) Alkaline Phosphatase 133 U/L (46-116) Creatine Kinase 155 U/L (26-192) Total Protein 6.3 g/dL (6.4-8.2) Albumin 3.1 g/dL (3.4-5.0) Albumin/Globulin Ratio 1.0 (1.0-1.7) Laboratory Tests Test 09/05/19 10:14 09/05/19 10:18 09/05/19 10:20 09/05/19 10:21 White Blood Count 12.5 x10^3/uL (4.0-11.0) Red Blood Count 4.40 x10^6/uL (3.50-5.40) Hemoglobin 12.4 g/dL (12.0-15.5) Hematocrit 37.2 % (36.0-47.0) Mean Corpuscular Volume 85 fL (79-100) Mean Corpuscular Hemoglobin 28 pg (25-35) Mean Corpuscular Hemoglobin Concent 33 g/dL (31-37) Red Cell Distribution Width 15.6 % (11.5-14.5) Platelet Count 346 x10^3/uL (140-400) Neutrophils (%) (Auto) 58 % (31-73) Lymphocytes (%) (Auto) 31 % (24-48) Monocytes (%) (Auto) 9 % (0-9) Eosinophils (%) (Auto) 1 % (0-3) Basophils (%) (Auto) 1 % (0-3) Neutrophils # (Auto) 7.3 x10^3/uL (1.8-7.7) Lymphocytes # (Auto) 3.8 x10^3/uL (1.0-4.8) Monocytes # (Auto) 1.1 x10^3/uL (0.0-1.1) Eosinophils # (Auto) 0.2 x10^3/uL (0.0-0.7) Basophils # (Auto) 0.1 x10^3/uL (0.0-0.2) Prothrombin Time 11.6 SEC (11.7-14.0) Prothromb Time International Ratio 0.9 (0.8-1.1) Activated Partial Thromboplast Time 23 SEC (24-38) Sodium Level 139 mmol/L (136-145) Potassium Level 4.1 mmol/L (3.5-5.1) Chloride Level 104 mmol/L (98-107) Carbon Dioxide Level 24 mmol/L (21-32) Anion Gap 11 (6-14) Blood Urea Nitrogen 9 mg/dL (7-20) Creatinine 0.7 mg/dL (0.6-1.0) Estimated GFR (Cockcroft-Gault) 92.2 Glucose Level 100 mg/dL (70-99) Lactic Acid Level 1.2 mmol/L (0.4-2.0) Calcium Level 9.4 mg/dL (8.5-10.1) Magnesium Level 2.0 mg/dL (1.8-2.4) Total Bilirubin 0.3 mg/dL (0.2-1.0) Direct Bilirubin 0.1 mg/dL (0.0-0.2) Aspartate Amino Transf (AST/SGOT) 23 U/L (15-37) Alanine Aminotransferase (ALT/SGPT) 20 U/L (14-59) Alkaline Phosphatase 156 U/L (46-116) Total Protein 7.4 g/dL (6.4-8.2) Albumin 3.8 g/dL (3.4-5.0) Thyroid Stimulating Hormone (TSH) 3.909 uIU/mL (0.358-3.74) Salicylates Level 4.3 mg/dL (2.8-20.0) Salicylate Last Dose Date Unknown Salicylate Last Dose Time Unknown Acetaminophen Level 226.8 mcg/ml (10-30) Acetaminophen Last Dose Date Unknown Acetaminophen Last Dose Time Unknown Ethyl Alcohol Level < 10 mg/dL (0-10) Urine Collection Type Unknown Urine Color Yellow Urine Clarity Clear Urine pH 7.0 Urine Specific [place] 1.010 Urine Protein Negative mg/dL (NEG-TRACE) Urine Glucose (UA) Negative mg/dL (NEG) Urine Ketones (Stick) Negative mg/dL (NEG) Urine Blood Negative (NEG) Urine Nitrite Negative (NEG) Urine Bilirubin Negative (NEG) Urine Urobilinogen Dipstick 0.2 mg/dL (0.2 mg/dL) Urine Leukocyte Esterase Negative (NEG) Urine RBC 0 /HPF (0-2) Urine WBC 0 /HPF (0-4) Urine Squamous Epithelial Cells Few /LPF Urine Amorphous Sediment Present /HPF Urine Bacteria 0 /HPF (0-FEW) Urine Opiates Screen Neg (NEG) Urine Methadone Screen Neg (NEG) Urine Barbiturates Neg (NEG) Urine Phencyclidine Screen Neg (NEG) Urine Amphetamine/Methamphetamine Pos (NEG) Urine Benzodiazepines Screen Neg (NEG) Urine Cocaine Screen Neg (NEG) Urine Cannabinoids Screen Pos (NEG) Urine Ethyl Alcohol Neg (NEG) Ammonia < 10 mcmol/L (11-34) Bedside Urine HCG, Qualitative Hcg negative (Negative) Test 09/05/19 13:20 09/05/19 16:43 09/05/19 21:53 09/06/19 04:00 Troponin I Quantitative < 0.017 ng/mL (0.000-0.055) Acetaminophen Level 135.2 mcg/ml (10-30) 62.2 mcg/ml (10-30) 4.0 mcg/ml (10-30) Acetaminophen Last Dose Date Unknown Unknown 09/05/19 Acetaminophen Last Dose Time Unknown Unknown 0900 Glucose (Fingerstick) 114 mg/dL (70-99) White Blood Count 13.5 x10^3/uL (4.0-11.0) Red Blood Count 4.18 x10^6/uL (3.50-5.40) Hemoglobin 11.7 g/dL (12.0-15.5) Hematocrit 35.3 % (36.0-47.0) Mean Corpuscular Volume 84 fL (79-100) Mean Corpuscular Hemoglobin 28 pg (25-35) Mean Corpuscular Hemoglobin Concent 33 g/dL (31-37) Red Cell Distribution Width 16.0 % (11.5-14.5) Platelet Count 302 x10^3/uL (140-400) Neutrophils (%) (Auto) 78 % (31-73) Lymphocytes (%) (Auto) 17 % (24-48) Monocytes (%) (Auto) 4 % (0-9) Eosinophils (%) (Auto) 1 % (0-3) Basophils (%) (Auto) 1 % (0-3) Neutrophils # (Auto) 10.5 x10^3/uL (1.8-7.7) Lymphocytes # (Auto) 2.3 x10^3/uL (1.0-4.8) Monocytes # (Auto) 0.5 x10^3/uL (0.0-1.1) Eosinophils # (Auto) 0.1 x10^3/uL (0.0-0.7) Basophils # (Auto) 0.1 x10^3/uL (0.0-0.2) Prothrombin Time 14.1 SEC (11.7-14.0) Prothromb Time International Ratio 1.1 (0.8-1.1) Activated Partial Thromboplast Time 32 SEC (24-38) Sodium Level 143 mmol/L (136-145) Potassium Level 3.2 mmol/L (3.5-5.1) Chloride Level 107 mmol/L (98-107) Carbon Dioxide Level 26 mmol/L (21-32) Anion Gap 10 (6-14) Blood Urea Nitrogen 10 mg/dL (7-20) Creatinine 0.8 mg/dL (0.6-1.0) Estimated GFR (Cockcroft-Gault) 79.0 BUN/Creatinine Ratio 13 (6-20) Glucose Level 122 mg/dL (70-99) Calcium Level 8.3 mg/dL (8.5-10.1) Total Bilirubin 0.5 mg/dL (0.2-1.0) Aspartate Amino Transf (AST/SGOT) 58 U/L (15-37) Alanine Aminotransferase (ALT/SGPT) 65 U/L (14-59) Alkaline Phosphatase 133 U/L (46-116) Creatine Kinase 155 U/L (26-192) Total Protein 6.3 g/dL (6.4-8.2) Albumin 3.1 g/dL (3.4-5.0) Albumin/Globulin Ratio 1.0 (1.0-1.7) Medications Current Medications Sodium Chloride 1,000 ml @ 1,000 mls/hr Q1H IV Last administered on 09/05/19at 10:16; Start 09/05/19 at 10:16; Stop 09/05/19 at 11:15; Status DC Charcoal/Sorbitol (Insta-Kayley Sorbitol) 50 gm 1X ONCE PO ; Start 09/05/19 at 10:30; Stop 09/05/19 at 11:12; Status DC Lorazepam (Ativan Inj) 2 mg 1X ONCE IVP ; Start 09/05/19 at 10:30; Stop 09/05/19 at 11:12; Status DC Acetylcysteine 12.3 gm/Dextrose 261.5 ml @ 200 mls/hr 1X ONCE IV ; Start 09/05/19 at 11:00; Stop 09/05/19 at 12:18; Status UNV Sodium Chloride 1,000 ml @ 125 mls/hr Q8H IV Last administered on 09/05/19at 11:00; Start 09/05/19 at 11:39; Stop 09/05/19 at 15:55; Status DC Lorazepam (Ativan Inj) 0.5 mg PRN Q6HRS PRN IV ANXIETY / AGITATION; Start 09/05/19 at 14:30 Lorazepam (Ativan) 1 mg PRN Q6HRS PRN PO ANXIETY / AGITATION; Start 09/05/19 at 14:30 Ondansetron HCl (Zofran) 4 mg PRN Q6HRS PRN IV NAUSEA/VOMITING Last administered on 09/06/19at 07:44; Start 09/05/19 at 14:30 Calcium Carbonate/ Glycine (Tums) 500 mg PRN Q3HRS PRN PO HEARTBURN / GAS; Start 09/05/19 at 14:30 Famotidine (Pepcid Vial) 20 mg BID IVP Last administered on 09/05/19at 21:30; Start 09/05/19 at 21:00 Info (Icu Electrolyte Protocol) 1 ea DAILY MC ; Start 09/06/19 at 09:00 Enoxaparin Sodium (Lovenox 40mg Syringe) 40 mg QHS SQ Last administered on 09/05/19at 21:30; Start 09/05/19 at 21:00 Sodium Chloride (Normal Saline Flush) 3 ml QSHIFT PRN IV AFTER MEDS AND BLOOD DRAWS; Start 09/05/19 at 14:30 Sodium Chloride 1,000 ml @ 100 mls/hr Q10H IV Last administered on 09/05/19at 21:28; Start 09/05/19 at 15:00; Stop 09/06/19 at 06:28; Status DC Senna/Docusate Sodium (Senna Plus) 1 tab BID PO ; Start 09/05/19 at 21:00 Docusate Sodium (Colace) 100 mg BID PO ; Start 09/05/19 at 21:00 Bisacodyl (Dulcolax Supp) 10 mg PRN DAILY PRN [place] CONSTIPATION; Start 09/05/19 at 14:30 Acetylcysteine (MUCOMYST 20% for APAP OD) 10,620 mg 1X ONCE PO Last administered on 09/06/19at 01:05; Start 09/06/19 at 00:00; Stop 09/06/19 at 00:01; Status DC Acetylcysteine (MUCOMYST 20% for APAP OD) 5,310 mg Q4H PO Last administered on 09/06/19at 04:56; Start 09/06/19 at 05:00; Stop 09/08/19 at 21:01 Potassium Chloride (Klor-Con) 40 meq 1X ONCE PO Last administered on 09/06/19at 07:40; Start 09/06/19 at 07:30; Stop 09/06/19 at 07:31; Status DC Sodium Chloride 1,000 ml @ 100 mls/hr Q10H IV Last administered on 09/06/19at 07:40; Start 09/06/19 at 07:30 Active Scripts Active Reported Effexor Xr (Venlafaxine Hcl) 75 Mg Cap.er.24h 1 Cap PO DAILY Vitals/I & O Vital Sign - Last 24 Hours 09/05/19 09/05/19 09/05/19 09/05/19 10:09 10:09 10:30 10:46 Temp 94.4 94.4 Pulse 82 84 68 68 Resp 18 12 12 12 B/P (MAP) 159/87 (111) 159/87 (111) 136/75 (95) 122/71 (88) Pulse Ox 100 100 100 100 O2 Delivery Room Air Room Air Room Air 09/05/19 09/05/19 09/05/19 09/05/19 11:01 11:31 12:03 12:30 Pulse 68 68 69 74 Resp 12 12 12 12 B/P (MAP) 135/77 (96) 119/65 (83) 140/81 (100) 156/97 (116) Pulse Ox 100 99 99 100 O2 Delivery Room Air Room Air 09/05/19 09/05/19 09/05/19 09/05/19 12:46 13:15 13:30 13:30 Temp 97.3 97.3 Pulse 74 74 74 Resp 14 16 20 B/P (MAP) 150/83 (105) 152/86 (108) Pulse Ox 100 98 100 O2 Delivery Room Air Room Air Room Air 09/05/19 09/05/19 09/05/19 09/05/19 13:45 14:00 14:15 14:30 Pulse 74 74 76 76 Resp 17 20 16 24 B/P (MAP) 140/81 (100) 148/79 (102) 133/71 (91) 118/69 (85) Pulse Ox 100 100 99 98 O2 Delivery Room Air Nasal Cannula Nasal Cannula Nasal Cannula 09/05/19 09/05/19 09/05/19 09/05/19 14:45 15:00 16:00 16:00 Temp 98.3 98.3 Pulse 84 75 74 Resp 20 13 20 B/P (MAP) 122/66 (84) 140/79 (99) 156/80 (105) Pulse Ox 98 98 99 O2 Delivery Nasal Cannula Room Air Room Air Room Air 09/05/19 09/05/19 09/05/19 09/05/19 17:00 18:00 19:00 20:00 Temp 98.6 98.6 Pulse 73 76 72 83 Resp 15 15 20 18 B/P (MAP) 142/91 (108) 135/93 (107) 151/86 (107) 126/68 (87) Pulse Ox 100 99 98 97 O2 Delivery Room Air Room Air Room Air Room Air 09/05/19 09/05/19 09/05/19 09/05/19 20:00 21:00 22:00 23:00 Pulse 77 68 78 Resp 18 17 22 B/P (MAP) 146/76 (99) 155/78 (103) 142/79 (100) Pulse Ox 99 98 99 O2 Delivery Room Air Room Air Room Air Room Air 09/05/19 09/06/19 09/06/19 09/06/19 23:59 00:00 01:00 02:00 Temp 99.0 99.0 Pulse 81 66 86 Resp 20 16 16 B/P (MAP) 156/82 (106) 152/85 (107) 126/76 (93) Pulse Ox 97 99 99 O2 Delivery Room Air Room Air Room Air Room Air 09/06/19 09/06/19 09/06/19 09/06/19 03:00 04:00 04:00 05:00 Temp 98.2 98.2 Pulse 83 85 82 Resp 20 19 14 B/P (MAP) 160/83 (108) 141/74 (96) 145/76 (99) Pulse Ox 98 98 99 O2 Delivery Room Air Room Air Room Air Room Air 09/06/19 09/06/19 09/06/19 06:00 07:15 08:00 Temp 98.2 98.2 Pulse 89 81 89 Resp 22 16 16 B/P (MAP) 152/72 (98) 153/78 (103) 159/75 (103) Pulse Ox 97 O2 Delivery Room Air Room Air Room Air Intake and Output 09/05/19 09/05/19 09/06/19 15:00 23:00 07:00 Intake Total 1000 ml 1468 ml 1103.60 ml Output Total 0 ml 1075 ml Balance 1000 ml 1468 ml 28.60 ml BONY JONES MD Sep 06, 2019 08:23
[2019-09-06] MEDS: SENNOSIDES/DOCUSATE 8.6/50MG TABLET. PO SCH ×2 (08:59→20:28)
[2019-09-06] MEDS: DOCUSATE SODIUM 100 MG CAPSULE. PO SCH ×2 (08:59→20:28)
[2019-09-06] MEDS: FAMOTIDINE 20 MG/2 ML VIAL IVP SCH (09:00)
[2019-09-06] MEDS: ELECTROLYTE (ICU) PROTOCOL. MC SCH (09:00)
--- NOTE | 2019-09-06 09:41 | PDOC2 ---
GI CONSULT Reason For Consult: Tylenol overdose HPI: HPI: 43 y/o female admitted to ICU through ER after taking two handfuls of Tylenol - on Mucomyst w/ normal INR and bili, slightly elevated AST and ALT, and mildly elevated Alk Phos (improved from yesterday). Denies n/v, abd pain, bleeding, and is tolerating diet w/o issue. Denies chronic GI issues except for constipation - takes Benefiber, Miralax, Colace but Amihumbertoza samples (8mcg) work the best. No previous EGD or colonoscopy. No GB, liver, pancreas, or PUD history. PMH: PMH: depression, anxiety hysterectomy, BSO FH: Family History: Other (several family memebers w/ lupus) Social History: Smoke: 1 pack per day ALCOHOL: occassional (6-7 drinks per week) Drugs: Marijuana, Crystal meth ROS: GEN: Denies fevers, chills, sweats HEENT: Denies blurred vision, sore throat CV: Denies chest pain RESP: Denies shortness of air, cough GI: Per HPI : Denies hematuria, dysuria ENDO: Denies weight changes NEURO: Denies confusion, dizziness MSK: Denies weakness, joint pain/swelling SKIN: Denies jaundice, pruritus Vitals: Vitals: Vital Signs Date Time Temp Pulse Resp B/P (MAP) Pulse Ox O2 Delivery O2 Flow Rate FiO2 09/06/19 09:00 90 16 156/89 (111) Room Air 09/06/19 07:15 98.2 98.2 09/06/19 06:00 97 Labs: Labs: Laboratory Tests Test 09/05/19 10:14 09/05/19 10:18 09/05/19 10:20 09/05/19 10:21 White Blood Count 12.5 x10^3/uL (4.0-11.0) Red Blood Count 4.40 x10^6/uL (3.50-5.40) Hemoglobin 12.4 g/dL (12.0-15.5) Hematocrit 37.2 % (36.0-47.0) Mean Corpuscular Volume 85 fL (79-100) Mean Corpuscular Hemoglobin 28 pg (25-35) Mean Corpuscular Hemoglobin Concent 33 g/dL (31-37) Red Cell Distribution Width 15.6 % (11.5-14.5) Platelet Count 346 x10^3/uL (140-400) Neutrophils (%) (Auto) 58 % (31-73) Lymphocytes (%) (Auto) 31 % (24-48) Monocytes (%) (Auto) 9 % (0-9) Eosinophils (%) (Auto) 1 % (0-3) Basophils (%) (Auto) 1 % (0-3) Neutrophils # (Auto) 7.3 x10^3/uL (1.8-7.7) Lymphocytes # (Auto) 3.8 x10^3/uL (1.0-4.8) Monocytes # (Auto) 1.1 x10^3/uL (0.0-1.1) Eosinophils # (Auto) 0.2 x10^3/uL (0.0-0.7) Basophils # (Auto) 0.1 x10^3/uL (0.0-0.2) Prothrombin Time 11.6 SEC (11.7-14.0) Prothromb Time International Ratio 0.9 (0.8-1.1) Activated Partial Thromboplast Time 23 SEC (24-38) Sodium Level 139 mmol/L (136-145) Potassium Level 4.1 mmol/L (3.5-5.1) Chloride Level 104 mmol/L (98-107) Carbon Dioxide Level 24 mmol/L (21-32) Anion Gap 11 (6-14) Blood Urea Nitrogen 9 mg/dL (7-20) Creatinine 0.7 mg/dL (0.6-1.0) Estimated GFR (Cockcroft-Gault) 92.2 Glucose Level 100 mg/dL (70-99) Lactic Acid Level 1.2 mmol/L (0.4-2.0) Calcium Level 9.4 mg/dL (8.5-10.1) Magnesium Level 2.0 mg/dL (1.8-2.4) Total Bilirubin 0.3 mg/dL (0.2-1.0) Direct Bilirubin 0.1 mg/dL (0.0-0.2) Aspartate Amino Transf (AST/SGOT) 23 U/L (15-37) Alanine Aminotransferase (ALT/SGPT) 20 U/L (14-59) Alkaline Phosphatase 156 U/L (46-116) Total Protein 7.4 g/dL (6.4-8.2) Albumin 3.8 g/dL (3.4-5.0) Thyroid Stimulating Hormone (TSH) 3.909 uIU/mL (0.358-3.74) Salicylates Level 4.3 mg/dL (2.8-20.0) Salicylate Last Dose Date Unknown Salicylate Last Dose Time Unknown Acetaminophen Level 226.8 mcg/ml (10-30) Acetaminophen Last Dose Date Unknown Acetaminophen Last Dose Time Unknown Ethyl Alcohol Level < 10 mg/dL (0-10) Urine Collection Type Unknown Urine Color Yellow Urine Clarity Clear Urine pH 7.0 Urine Specific [place] 1.010 Urine Protein Negative mg/dL (NEG-TRACE) Urine Glucose (UA) Negative mg/dL (NEG) Urine Ketones (Stick) Negative mg/dL (NEG) Urine Blood Negative (NEG) Urine Nitrite Negative (NEG) Urine Bilirubin Negative (NEG) Urine Urobilinogen Dipstick 0.2 mg/dL (0.2 mg/dL) Urine Leukocyte Esterase Negative (NEG) Urine RBC 0 /HPF (0-2) Urine WBC 0 /HPF (0-4) Urine Squamous Epithelial Cells Few /LPF Urine Amorphous Sediment Present /HPF Urine Bacteria 0 /HPF (0-FEW) Urine Opiates Screen Neg (NEG) Urine Methadone Screen Neg (NEG) Urine Barbiturates Neg (NEG) Urine Phencyclidine Screen Neg (NEG) Urine Amphetamine/Methamphetamine Pos (NEG) Urine Benzodiazepines Screen Neg (NEG) Urine Cocaine Screen Neg (NEG) Urine Cannabinoids Screen Pos (NEG) Urine Ethyl Alcohol Neg (NEG) Ammonia < 10 mcmol/L (11-34) Bedside Urine HCG, Qualitative Hcg negative (Negative) Test 09/05/19 13:20 09/05/19 16:43 09/05/19 21:53 09/06/19 04:00 Troponin I Quantitative < 0.017 ng/mL (0.000-0.055) Acetaminophen Level 135.2 mcg/ml (10-30) 62.2 mcg/ml (10-30) 4.0 mcg/ml (10-30) Acetaminophen Last Dose Date Unknown Unknown 09/05/19 Acetaminophen Last Dose Time Unknown Unknown 0900 Glucose (Fingerstick) 114 mg/dL (70-99) White Blood Count 13.5 x10^3/uL (4.0-11.0) Red Blood Count 4.18 x10^6/uL (3.50-5.40) Hemoglobin 11.7 g/dL (12.0-15.5) Hematocrit 35.3 % (36.0-47.0) Mean Corpuscular Volume 84 fL (79-100) Mean Corpuscular Hemoglobin 28 pg (25-35) Mean Corpuscular Hemoglobin Concent 33 g/dL (31-37) Red Cell Distribution Width 16.0 % (11.5-14.5) Platelet Count 302 x10^3/uL (140-400) Neutrophils (%) (Auto) 78 % (31-73) Lymphocytes (%) (Auto) 17 % (24-48) Monocytes (%) (Auto) 4 % (0-9) Eosinophils (%) (Auto) 1 % (0-3) Basophils (%) (Auto) 1 % (0-3) Neutrophils # (Auto) 10.5 x10^3/uL (1.8-7.7) Lymphocytes # (Auto) 2.3 x10^3/uL (1.0-4.8) Monocytes # (Auto) 0.5 x10^3/uL (0.0-1.1) Eosinophils # (Auto) 0.1 x10^3/uL (0.0-0.7) Basophils # (Auto) 0.1 x10^3/uL (0.0-0.2) Prothrombin Time 14.1 SEC (11.7-14.0) Prothromb Time International Ratio 1.1 (0.8-1.1) Activated Partial Thromboplast Time 32 SEC (24-38) Sodium Level 143 mmol/L (136-145) Potassium Level 3.2 mmol/L (3.5-5.1) Chloride Level 107 mmol/L (98-107) Carbon Dioxide Level 26 mmol/L (21-32) Anion Gap 10 (6-14) Blood Urea Nitrogen 10 mg/dL (7-20) Creatinine 0.8 mg/dL (0.6-1.0) Estimated GFR (Cockcroft-Gault) 79.0 BUN/Creatinine Ratio 13 (6-20) Glucose Level 122 mg/dL (70-99) Calcium Level 8.3 mg/dL (8.5-10.1) Total Bilirubin 0.5 mg/dL (0.2-1.0) Aspartate Amino Transf (AST/SGOT) 58 U/L (15-37) Alanine Aminotransferase (ALT/SGPT) 65 U/L (14-59) Alkaline Phosphatase 133 U/L (46-116) Creatine Kinase 155 U/L (26-192) Total Protein 6.3 g/dL (6.4-8.2) Albumin 3.1 g/dL (3.4-5.0) Albumin/Globulin Ratio 1.0 (1.0-1.7) Test 09/06/19 08:35 Glucose (Fingerstick) 90 mg/dL (70-99) Allergies: Coded Allergies: No Known Drug Allergies (Unverified , 09/05/19) Medications: Current Medications Medications (Trade) Dose Ordered Sig/Mae Route PRN Reason Start Time Stop Time Status Last Admin Dose Admin Sodium Chloride 1,000 ml @ 1,000 mls/hr Q1H IV 09/05/19 10:16 09/05/19 11:15 DC 09/05/19 10:16 Sodium Chloride 1,000 ml @ 125 mls/hr Q8H IV 09/05/19 11:39 09/05/19 15:55 DC 09/05/19 11:00 Lorazepam (Ativan Inj) 0.5 mg PRN Q6HRS PRN IV ANXIETY / AGITATION 09/05/19 14:30 09/06/19 09:00 Ondansetron HCl (Zofran) 4 mg PRN Q6HRS PRN IV NAUSEA/VOMITING 09/05/19 14:30 09/06/19 07:44 Famotidine (Pepcid Vial) 20 mg BID IVP 09/05/19 21:00 09/06/19 09:00 Info (Icu Electrolyte Protocol) 1 ea DAILY MC 09/06/19 09:00 09/06/19 09:00 Enoxaparin Sodium (Lovenox 40mg Syringe) 40 mg QHS SQ 09/05/19 21:00 09/05/19 21:30 Sodium Chloride 1,000 ml @ 100 mls/hr Q10H IV 09/05/19 15:00 09/06/19 06:28 DC 09/05/19 21:28 Senna/Docusate Sodium (Senna Plus) 1 tab BID PO 09/05/19 21:00 09/06/19 08:59 Docusate Sodium (Colace) 100 mg BID PO 09/05/19 21:00 09/06/19 08:59 Acetylcysteine (MUCOMYST 20% for APAP OD) 10,620 mg 1X ONCE PO 09/06/19 00:00 09/06/19 00:01 DC 09/06/19 01:05 Acetylcysteine (MUCOMYST 20% for APAP OD) 5,310 mg Q4H PO 09/06/19 05:00 09/08/19 21:01 09/06/19 09:00 Potassium Chloride (Klor-Con) 40 meq 1X ONCE PO 09/06/19 07:30 09/06/19 07:31 DC 09/06/19 07:40 Sodium Chloride 1,000 ml @ 100 mls/hr Q10H IV 09/06/19 07:30 09/06/19 07:40 Imaging: Imaging: CXR IMPRESSION: No acute pulmonary finding. PE: GEN: NAD HEENT: Atraumatic, PERRL LUNGS: CTAB HEART: RRR ABD: NABS, S/ND/NT EXTREMITY: No edema SKIN: No rashes, no jaundice NEURO/PSYCH: A & O 3, tearful A/P: A/P: Intentional overdose w/ Tylenol Depression, substance abuse Chronic constipation CRC screen - average risk -- Continue Mucomyst protocol, follow labs. No need for IV H2 lor since eating. Resume Amitiza, etc. Pharmacy called to ask about continuing Mucomyst w/ Tylenol < 4 - checked w/ Dr. Wall - continue for now. JAMEY AREVALO Sep 06, 2019 09:41
--- NOTE | 2019-09-06 09:51 | NUR ---
Per akiko Arreola to transfer to med/tele.
[2019-09-06] MEDS ORDERED: BISACODYL 5 MG TABLET.DR. PO PRN (10:45)
[2019-09-06] MEDS ORDERED: POLYETHYLENE GLYCOL 3350 17 GM PACKET. PO PRN (10:45)
[2019-09-06] MEDS: VENLAFAXINE XR 37.5 MG CAP.ER.24H. PO SCH ×2 (11:39→20:28)
[2019-09-06 13:35] LABS: ALBUMIN 3.2 g/dL (3.4-5.0); DIRECT BILIRUBIN 0.1 mg/dL (0.0-0.2); TOTAL BILIRUBIN 0.5 mg/dL (0.2-1.0); TOTAL PROTEIN 6.4 g/dL (6.4-8.2)
--- NOTE | 2019-09-06 13:39 | NUR ---
Pt transfer: pt transferred to 665, report called to JUAN MANUEL Reyes. Pt does not have any personal belongings with her, all were previously sent home. Pt settled into new room, 1:[address]
--- NOTE | 2019-09-06 14:12 | NUR ---
SS following for discharge planning. SS reviewed pt chart. Pt is from home and is currently on room air. SS made referral to PAT team for assessment and recommendations. Moises from PAT team contacted SS and reported that pt needs to be observed for 24 hours more per staff. Moises reported that pt is still SI and is agreeable to inpatient treatment. Moises reported that he would revisit with patient in the morning and would phone and fax a referral to [facility].
[2019-09-06] MEDS: LUBIPROSTONE 24 MCG CAPSULE PO SCH (17:00)
[2019-09-06] MEDS: FAMOTIDINE 20 MG TABLET. PO SCH (20:28)
[2019-09-06] MEDS: ENOXAPARIN 40 MG/0.4 ML SYRINGE. SQ SCH (20:29)
[2019-09-06 22:13] LABS: ALBUMIN 3.3 g/dL (3.4-5.0); DIRECT BILIRUBIN 0.1 mg/dL (0.0-0.2); TOTAL BILIRUBIN 0.3 mg/dL (0.2-1.0); TOTAL PROTEIN 6.4 g/dL (6.4-8.2)
[2019-09-07] VITALS (7 sets, daily range): BP systolic 118–146; BP diastolic 56–72
[2019-09-07] MEDS: ACETYLCYSTEINE 20% PO SCH ×6 (01:00→21:00)
[2019-09-07] MEDS: IV NORMAL SALINE 1000ML BAG 1,000 ML IV SCH ×3 (04:02→23:30)
[2019-09-07 06:38] LABS: PROTHROMBIN TIME PATIENT 13.7 SEC (11.7-14.0)
[2019-09-07 06:45] LABS: ALBUMIN 3.1 g/dL (3.4-5.0); ALBUMIN/GLOBULIN RATIO 0.9 (1.0-1.7); CALCIUM 8.2 mg/dL (8.5-10.1); CREATININE 0.7 mg/dL (0.6-1.0); DIRECT BILIRUBIN 0.1 mg/dL (0.0-0.2); GFR 92.2; POTASSIUM 3.4 mmol/L (3.5-5.1); TOTAL BILIRUBIN 0.3 mg/dL (0.2-1.0); TOTAL PROTEIN 6.4 g/dL (6.4-8.2)
[2019-09-07] MEDS: ELECTROLYTE (ICU) PROTOCOL. MC SCH (09:00)
--- NOTE | 2019-09-07 09:06 | NUR ---
SW following pt. Spoke with RN and Pt's liver enzymes are elevated today. Pt not appropriate for inpt psych eval at this time. Discussed with PAT team. Will continue to follow.
[2019-09-07] MEDS: VENLAFAXINE XR 37.5 MG CAP.ER.24H. PO SCH ×2 (09:50→21:27)
[2019-09-07] MEDS: SENNOSIDES/DOCUSATE 8.6/50MG TABLET. PO SCH ×2 (09:50→21:27)
[2019-09-07] MEDS: LUBIPROSTONE 24 MCG CAPSULE PO SCH (09:50)
[2019-09-07] MEDS: DOCUSATE SODIUM 100 MG CAPSULE. PO SCH ×2 (09:50→21:27)
--- NOTE | 2019-09-07 10:10 | PDOC ---
Subjective: Subjective: Feels fine. Doesn't care for hospital food. No n/v or abd pain. Stooling - higher dose of Amitiza (only dose available here is 24mcg) is probably too much. Objective: Vital Signs: Vital Signs Date Time Temp Pulse Resp B/P (MAP) Pulse Ox O2 Delivery O2 Flow Rate FiO2 09/07/19 07:00 98.2 71 16 143/70 (94) 97 Room Air 98.2 Labs: Laboratory Tests Test 09/06/19 13:00 09/06/19 16:56 09/06/19 21:45 09/07/19 06:00 Total Bilirubin 0.5 mg/dL 0.3 mg/dL 0.3 mg/dL Direct Bilirubin 0.1 mg/dL 0.1 mg/dL 0.1 mg/dL Aspartate Amino Transf (AST/SGOT) 120 U/L 340 U/L 417 U/L Alanine Aminotransferase (ALT/SGPT) 139 U/L 345 U/L 496 U/L Alkaline Phosphatase 130 U/L 150 U/L 143 U/L Total Protein 6.4 g/dL 6.4 g/dL 6.4 g/dL Albumin 3.2 g/dL 3.3 g/dL 3.1 g/dL Glucose (Fingerstick) 98 mg/dL Prothrombin Time 13.7 SEC Prothromb Time International Ratio 1.1 Sodium Level 142 mmol/L Potassium Level 3.4 mmol/L Chloride Level 106 mmol/L Carbon Dioxide Level 22 mmol/L Anion Gap 14 Blood Urea Nitrogen 5 mg/dL Creatinine 0.7 mg/dL Estimated GFR (Cockcroft-Gault) 92.2 BUN/Creatinine Ratio 7 Glucose Level 141 mg/dL Calcium Level 8.2 mg/dL Albumin/Globulin Ratio 0.9 PE: GEN: NAD - boyfriend present, also 1:1 sitter LUNGS: CTAB HEART: RRR ABD: NABS, S/ND/NT NEURO/PSYCH: A & O 3 A/P: Intentional overdose w/ Tylenol -- INR stable at 1.1. AST, ALT, and Alk Phos worse. Reviewed w/ Dr. Wall - continue Mucomyst and recheck LFTs tomorrow - if INR stable, could consider DC then. Back off on Amitiza - adjust as needed. JAMEY AREVALO Sep 07, 2019 10:10
--- NOTE | 2019-09-07 10:28 | PDOC ---
[employer] PROGRESS NOTE Chief Complaint Chief Complaint A/P: Acetaminophen overdose major depression Diphenhydramine overdose Suicide attempt by acetaminophen overdose Adderall ingestion Hypokalemia Transaminitis ADMITTED icu bed --> downgrade to tele monitor for hepatic toxicity monitor for cardiac toxicity suicide precautions GI CONSULT Mucomyst dosing dvt prophylaxis iv fluid support History of Present Illness History of Present Illness 09/07/19 Pt seen and examined. She says she developed severe depression after her hysterectomy. She says she may consider inpatient psychiatric unit after discharge. Discussed with francisco. Pt on Mucomyst. SARA RN at length DW Benito at length also 1:1 observer present PRIOR DAY PROGRESS NOTE: Ms Tinoco is a 43yo F w/ PMHx MDD who is admitted with an overdose of Tylenol PM. Family had reportedly called EMS stating that patient had taken 80 tablets of Tylenol PM at 9:10 the morning of 09/05/19. EMS reports that upon their arrival patient was very lethargic and responsive to painful stimuli. They reported GCS of 9. Patient reportedly has had no vomiting, has been depressed recently, lost 2 grandmothers in last year, under stress in relationship, shares custody with a 17 and 13 year old. Has a long history of MDD has previously felt suicidal on lexapro, felt lifeless on cymbalta, had no libido on zoloft and has been on effexor for a while now to aid in treatment of her hot flashes and MDD. 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 She has never had a suicide attempt previously but notes she definitely tried to overdose on tylenol knowing it is an effective way to commit suicide. She has never had inpatient psych. She is not confused today, very tearful, still very depressed and knows she should not want to , but feels so depressed she wants to. K was 3.2, LFTs only slightly elevated. followed tylenol level 4, 9 and 12 hrs, 226.8->135->62.2->4. Unfortunately, she was not administered acetylcysteine until midnight due to late presentation after 11pm last night. Vitals/I&O Vitals/I&O: Vital Signs Date Time Temp Pulse Resp B/P (MAP) Pulse Ox O2 Delivery O2 Flow Rate FiO2 09/07/19 07:00 98.2 71 16 143/70 (94) 97 Room Air 98.2 I & O 09/06/19 09/06/19 09/07/19 15:00 23:00 07:00 Intake Total 20 ml 240 ml 870 ml Output Total 1700 ml Balance -1680 ml 240 ml 870 ml Physical Exam General: Alert, Oriented X3, Cooperative, No acute distress, mild distress Heart: Regular rate, Normal S1, Normal S2 Lungs: Clear, Wheezing Abdomen: Normal bowel sounds, Soft, No tenderness Extremities: No cyanosis, Other (Bruising on arms, pt states it is due to needle sticks for venous access since admission) Labs Labs: Laboratory Tests Test 09/06/19 13:00 09/06/19 16:56 09/06/19 21:45 09/07/19 06:00 Total Bilirubin 0.5 mg/dL (0.2-1.0) 0.3 mg/dL (0.2-1.0) 0.3 mg/dL (0.2-1.0) Direct Bilirubin 0.1 mg/dL (0.0-0.2) 0.1 mg/dL (0.0-0.2) 0.1 mg/dL (0.0-0.2) Aspartate Amino Transf (AST/SGOT) 120 U/L (15-37) 340 U/L (15-37) 417 U/L (15-37) Alanine Aminotransferase (ALT/SGPT) 139 U/L (14-59) 345 U/L (14-59) 496 U/L (14-59) Alkaline Phosphatase 130 U/L (46-116) 150 U/L (46-116) 143 U/L (46-116) Total Protein 6.4 g/dL (6.4-8.2) 6.4 g/dL (6.4-8.2) 6.4 g/dL (6.4-8.2) Albumin 3.2 g/dL (3.4-5.0) 3.3 g/dL (3.4-5.0) 3.1 g/dL (3.4-5.0) Glucose (Fingerstick) 98 mg/dL (70-99) Prothrombin Time 13.7 SEC (11.7-14.0) Prothromb Time International Ratio 1.1 (0.8-1.1) Sodium Level 142 mmol/L (136-145) Potassium Level 3.4 mmol/L (3.5-5.1) Chloride Level 106 mmol/L (98-107) Carbon Dioxide Level 22 mmol/L (21-32) Anion Gap 14 (6-14) Blood Urea Nitrogen 5 mg/dL (7-20) Creatinine 0.7 mg/dL (0.6-1.0) Estimated GFR (Cockcroft-Gault) 92.2 BUN/Creatinine Ratio 7 (6-20) Glucose Level 141 mg/dL (70-99) Calcium Level 8.2 mg/dL (8.5-10.1) Albumin/Globulin Ratio 0.9 (1.0-1.7) Review of Systems Review of Systems: Yes Constipation No N/V Assessment and Plan Assessmemt and Plan Problems Medical Problems: (1) Acetaminophen overdose Status: Acute (2) Diphenhydramine overdose Status: Acute (3) Suicide attempt by acetaminophen overdose Status: Acute A/P: Acetaminophen overdose major depression Diphenhydramine overdose Suicide attempt by acetaminophen overdose Adderall ingestion Hypokalemia Transaminitis Plan monitor for hepatic toxicity Daily LFTs and INR monitor for cardiac toxicity suicide precautions Continue Mucomyst and PO famotidine - await GI input dvt prophylaxis iv fluid support Iron supplement Potassium supplement PAT team consult CBC, CMP, INR Full code Discharge when medically cleared to inpatient psychiatry Total time 32 min Comment Review of Relevant I have reviewed the following items claire (where applicable) has been applied. Medications: Current Medications Medications (Trade) Dose Ordered Sig/Mae Route PRN Reason Start Time Stop Time Status Last Admin Dose Admin Venlafaxine HCl (Effexor Xr) 37.5 mg BID PO 09/06/19 11:00 09/07/19 09:50 Lubiprostone (Amitiza) 24 mcg BIDWMEALS PO 09/06/19 17:00 09/07/19 10:12 DC 09/07/19 09:50 Famotidine (Pepcid) 20 mg QHS PO 09/06/19 21:00 09/06/19 20:28 GENNY GUTIÉRREZ III DO Sep 07, 2019 10:28
[2019-09-07] MEDS: FERROUS SULFATE 325 MG TABLET. PO SCH (11:00)
[2019-09-07 11:04] LABS: BASO # 0.1 x10^3/uL (0.0-0.2); BASO % 1 % (0-3); EOS # 0.2 x10^3/uL (0.0-0.7); EOS % 2 % (0-3); HEMATOCRIT 35.6 % (36.0-47.0); HEMOGLOBIN 11.8 g/dL (12.0-15.5); LYMPH # 2.7 x10^3/uL (1.0-4.8); LYMPH % 25 % (24-48); MEAN CORPUSCULAR HEMOGLOBIN 28 pg (25-35); MEAN CORPUSCULAR HGB CONC 33 g/dL (31-37); MEAN CORPUSCULAR VOLUME 85 fL (79-100); MONO # 0.7 x10^3/uL (0.0-1.1); MONO % 6 % (0-9); NEUT # 7.2 x10^3/uL (1.8-7.7); NEUT % 66 % (31-73); PLATELET COUNT 299 x10^3/uL (140-400); RED BLOOD COUNT 4.17 x10^6/uL (3.50-5.40); RED CELL DISTRIBUTION WIDTH 16.5 % (11.5-14.5); WHITE BLOOD COUNT 10.9 x10^3/uL (4.0-11.0)
[2019-09-07] MEDS ORDERED: POTASSIUM CHLORIDE 20 MEQ TABLET.ER. PO ONE (12:00)
[2019-09-07] MEDS: ONDANSETRON PF 4 MG/2 ML VIAL. IV PRN (12:19)
[2019-09-07] MEDS: FAMOTIDINE 20 MG TABLET. PO SCH (21:27)
[2019-09-07] MEDS: ENOXAPARIN 40 MG/0.4 ML SYRINGE. SQ SCH (21:28)
[2019-09-08] MEDS: ACETYLCYSTEINE 20% PO SCH ×3 (01:00→09:00)
[2019-09-08 03:00] VITALS: BP 139/72
[2019-09-08 06:46] LABS: ALBUMIN 2.9 g/dL (3.4-5.0); ALBUMIN/GLOBULIN RATIO 0.9 (1.0-1.7); CALCIUM 8.3 mg/dL (8.5-10.1); CREATININE 0.6 mg/dL (0.6-1.0); GFR 110.2; POTASSIUM 3.4 mmol/L (3.5-5.1); PROTHROMBIN TIME PATIENT 13.5 SEC (11.7-14.0); TOTAL BILIRUBIN 0.3 mg/dL (0.2-1.0); TOTAL PROTEIN 6.1 g/dL (6.4-8.2)
[2019-09-08 06:55] VITALS: BP 140/75
[2019-09-08] MEDS: LUBIPROSTONE 24 MCG CAPSULE PO SCH ×2 (07:30→10:33)
[2019-09-08] MEDS: ELECTROLYTE (ICU) PROTOCOL. MC SCH (09:00)
[2019-09-08] MEDS: IV NORMAL SALINE 1000ML BAG 1,000 ML IV SCH (09:30)
--- NOTE | 2019-09-08 09:32 | PDOC ---
Subjective: Subjective: Feels fine, wants to go home. Objective: Vital Signs: Vital Signs Date Time Temp Pulse Resp B/P (MAP) Pulse Ox O2 Delivery O2 Flow Rate FiO2 09/08/19 06:55 98.2 84 18 140/75 (96) 95 Room Air 98.2 Labs: Laboratory Tests Test 09/08/19 03:50 Prothrombin Time 13.5 SEC Prothromb Time International Ratio 1.1 Sodium Level 142 mmol/L Potassium Level 3.4 mmol/L Chloride Level 106 mmol/L Carbon Dioxide Level 24 mmol/L Anion Gap 12 Blood Urea Nitrogen 3 mg/dL Creatinine 0.6 mg/dL Estimated GFR (Cockcroft-Gault) 110.2 BUN/Creatinine Ratio 5 Glucose Level 80 mg/dL Calcium Level 8.3 mg/dL Total Bilirubin 0.3 mg/dL Aspartate Amino Transf (AST/SGOT) 431 U/L Alanine Aminotransferase (ALT/SGPT) 813 U/L Alkaline Phosphatase 130 U/L Total Protein 6.1 g/dL Albumin 2.9 g/dL Albumin/Globulin Ratio 0.9 PE: GEN: NAD, has 1:1 LUNGS: CTAB HEART: RRR ABD: NABS, S/ND/NT NEURO/PSYCH: A & O 3 A/P: Intentional overdose w/ Tylenol, transaminitis Chronic constipation - controlled -- INR stable/WNL - okay to DC per GI. JAMEY AREVALO Sep 08, 2019 09:32
--- NOTE | 2019-09-08 10:31 | NUR ---
Spoke with RN and pt is medically stable but wants to go home. Discussed to continue 1:1 supervision until PAT team re-evaluation. Moises will come in to see pt. Will continue to follow.
[2019-09-08] MEDS: VENLAFAXINE XR 37.5 MG CAP.ER.24H. PO SCH (10:32)
[2019-09-08] MEDS: FERROUS SULFATE 325 MG TABLET. PO SCH (10:32)
[2019-09-08] MEDS: SENNOSIDES/DOCUSATE 8.6/50MG TABLET. PO SCH (10:33)
[2019-09-08] MEDS: DOCUSATE SODIUM 100 MG CAPSULE. PO SCH (10:33)
[2019-09-08 10:47] VITALS: BP 143/75
--- NOTE | 2019-09-08 11:56 | PDOC ---
[employer] PROGRESS NOTE Chief Complaint Chief Complaint A/P: Acetaminophen overdose major depression Diphenhydramine overdose Suicide attempt by acetaminophen overdose Adderall ingestion Hypokalemia Transaminitis ADMITTED icu bed --> downgrade to tele monitor for hepatic toxicity monitor for cardiac toxicity suicide precautions GI CONSULT Mucomyst dosing dvt prophylaxis iv fluid support History of Present Illness History of Present Illness 09/08/19 Pt seen and examined. She says she is homesick. She does not want to go to inpt psych. She denies SI. Discussed with nurse and pt's francisco. Per nurse, GI ok with discharge if INR normal (was normal this a.m. [1.1]). Will have PAT evaluate before discharge. 09/07/19 Pt seen and examined. She says she developed severe depression after her hysterectomy. She says she may consider inpatient psychiatric unit after discharge. Discussed with francisco. Pt on Mucomyst. SARA RN at length DW Benito at length also 1:1 observer present PRIOR DAY PROGRESS NOTE: Ms Tinoco is a 43yo F w/ PMHx MDD who is admitted with an overdose of Tylenol PM. Family had reportedly called EMS stating that patient had taken 80 tablets of Tylenol PM at 9:10 the morning of 09/05/19. EMS reports that upon their arrival patient was very lethargic and responsive to painful stimuli. They reported GCS of 9. Patient reportedly has had no vomiting, has been depressed recently, lost 2 grandmothers in last year, under stress in relationship, shares custody with a 17 and 13 year old. Has a long history of MDD has previously felt suicidal on lexapro, felt lifeless on cymbalta, had no libido on zoloft and has been on effexor for a while now to aid in treatment of her hot flashes and MDD. 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 She has never had a suicide attempt previously but notes she definitely tried to overdose on tylenol knowing it is an effective way to commit suicide. She has never had inpatient psych. She is not confused today, very tearful, still very depressed and knows she should not want to , but feels so depressed she wants to. K was 3.2, LFTs only slightly elevated. followed tylenol level 4, 9 and 12 hrs, 226.8->135->62.2->4. Unfortunately, she was not administered acetylcysteine until midnight due to late presentation after 11pm last night. Vitals/I&O Vitals/I&O: Vital Signs Date Time Temp Pulse Resp B/P (MAP) Pulse Ox O2 Delivery O2 Flow Rate FiO2 09/08/19 10:47 98.2 77 18 143/75 (97) 98 Room Air 98.2 Physical Exam General: Alert, Oriented X3, Cooperative, No acute distress, mild distress Heart: Regular rate, Normal S1, Normal S2 Lungs: Clear, Wheezing Abdomen: Normal bowel sounds, Soft, No tenderness Extremities: No cyanosis, Other (Bruising on arms, pt states it is due to needle sticks for venous access since admission) Labs Labs: Laboratory Tests Test 09/08/19 03:50 Prothrombin Time 13.5 SEC (11.7-14.0) Prothromb Time International Ratio 1.1 (0.8-1.1) Sodium Level 142 mmol/L (136-145) Potassium Level 3.4 mmol/L (3.5-5.1) Chloride Level 106 mmol/L (98-107) Carbon Dioxide Level 24 mmol/L (21-32) Anion Gap 12 (6-14) Blood Urea Nitrogen 3 mg/dL (7-20) Creatinine 0.6 mg/dL (0.6-1.0) Estimated GFR (Cockcroft-Gault) 110.2 BUN/Creatinine Ratio 5 (6-20) Glucose Level 80 mg/dL (70-99) Calcium Level 8.3 mg/dL (8.5-10.1) Total Bilirubin 0.3 mg/dL (0.2-1.0) Aspartate Amino Transf (AST/SGOT) 431 U/L (15-37) Alanine Aminotransferase (ALT/SGPT) 813 U/L (14-59) Alkaline Phosphatase 130 U/L (46-116) Total Protein 6.1 g/dL (6.4-8.2) Albumin 2.9 g/dL (3.4-5.0) Albumin/Globulin Ratio 0.9 (1.0-1.7) Review of Systems Review of Systems: No chest pain No headache No abdominal pain Assessment and Plan Assessmemt and Plan Problems Medical Problems: (1) Acetaminophen overdose Status: Acute (2) Diphenhydramine overdose Status: Acute (3) Suicide attempt by acetaminophen overdose Status: Acute Assessment: Acetaminophen overdose major depression Diphenhydramine overdose Suicide attempt by acetaminophen overdose Adderall ingestion Hypokalemia Transaminitis Plan: Discontinue 1:1 observation Consider discharge home if ok with PAT team monitor for hepatic toxicity Daily LFTs and INR monitor for cardiac toxicity Continue Mucomyst and PO famotidine - await GI input DVT prophylaxis iv fluid support PAT team consult CBC, CMP, INR Full code Discharge home if OK'd by PAT team Comment Review of Relevant I have reviewed the following items claire (where applicable) has been applied. Medications: Current Medications Medications (Trade) Dose Ordered Sig/Mae Route PRN Reason Start Time Stop Time Status Last Admin Dose Admin Lubiprostone (Amitiza) 24 mcg DAILY PO 09/08/19 07:30 09/08/19 10:33 Potassium Chloride (Klor-Con) 20 meq 1X ONCE PO 09/07/19 12:00 09/07/19 12:01 DC 09/07/19 12:19 GENNY GUTIÉRREZ III DO Sep 08, 2019 11:56
--- NOTE | 2019-09-08 13:40 | NUR ---
SW following pt. Pt seen by Moises and taya does not have SI. Pt has agreed to follow up with [facility] for IOP services and is provided with a contact information to set up an appointment. Pt is provided with RSI information for 02/06 crisis services. Moises will complete a safety contract with pt's significant other and has discussed this with RN. Pt is cleared by PAT team to discontinue 1:1 and discharge today.
--- NOTE | 2019-09-08 13:40 | NUR ---
Pt discharged home with family. Discussed discharge plan and instructions reviewed. Verbalized understanding.
--- NOTE | 2019-09-09 13:19 | DS ---
DATE OF DISCHARGE: 09/08/2019 ADMISSION DIAGNOSIS: Tylenol overdose. DISCHARGE DIAGNOSES: Resolving Tylenol overdose and depression. 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 She took a bunch of Tylenol. Actually, it was Tylenol PM. She took 2 handfuls. We observed her and gave her Mucomyst every 4 hours until her Tylenol levels returned to normal. Her INR remained fine at 1.1, but her liver function test did elevate, although I suspect her prognosis is still excellent. We are considering inpatient psych but yesterday when we saw her and examined her, she was doing well. She requested to go home. We had the psychiatric assessment team evaluate her. They were okay with her going home. We discharged to home and told her to not drink any alcohol or take any Tylenol. DISPOSITION: Home. ACTIVITY: As tolerated. DIET: Low sodium. MEDICATIONS: Please see MRAD. TOTAL TIME: 31 minutes. GENNY GUTIÉRREZ DO DR: NOVA/bipin JOB#: [id number] / [id number]
== END 2019-09-08 11:34 | disposition home or self-care (01) | DRG 917 ==
LOC: ER 10:09 → 1 WEST ICU 11:33 → 6 SOUTH 09-06 13:36
PROVIDERS: ADMIT Family Medicine; ATTEND Family Medicine
DX: T39.1X2A Poisoning by 4-Aminophenol derivatives, intentional self-harm, initial encounter (principal); G92 Toxic encephalopathy; E87.6 Hypokalemia; F17.210 Nicotine dependence, cigarettes, uncomplicated; F32.9 Major depressive disorder, single episode, unspecified; F41.9 Anxiety disorder, unspecified; K59.09 Other constipation; N95.1 Menopausal and female climacteric states; Z82.49 Family history of ischemic heart disease and other diseases of the circulatory system; Z90.710 Acquired absence of both cervix and uterus; Y92.89 Other specified places as the place of occurrence of the external cause
CPT/HCPCS: 36415; 71045; 80048; 80053; 80076; 80307; 80329; 81001; 81025; 82140; 82248; 82550; 82962; 83605; 83735; 84443; 84484; 85025; 85610; 85730; 93005; 96360; 96361; G0480; J1650; J2060; J2405; J3490; J7030; 92610; 99285-25; G0378